=== PATIENT | female | born 1940 | race Caucasian/White ===

== ENCOUNTER 2024-08-08 16:17 | Inpatient (IN) ==
--- NOTE | 2024-08-08 16:30 | Emergency Department Note ---
Impression & Plan Stroke-like symptoms, VAL (internuclear ophthalmoplegia) ED Provider Note Provider: Carlitos Mendez MD DATE OF SERVICE: 08/08/2024 CHIEF COMPLAINT: Neurosymptoms HISTORY OF PRESENT ILLNESS: Patient is a 84-year-old female history of TIAs by her report presenting with EMS from home. Patient evidently is normal around 10 PM last night. EMS states son went to check on this afternoon and the patient had gotten ready going to [employer] and found her seated having visual issues and maybe some right-sided facial droop and weakness. EMS was activated. Patient is on aspirin. No falls or trauma reported. Patient denies any pain. Patient reports that she has some visual issue with blurriness when she uses both eyes but using just 1 eye at a time she does not have blurry vision. Denies numbness or tingling of the face arms or legs. Again denies any shortness of breath or cough or cold symptoms. No nausea or vomiting reported. PAST MEDICAL HISTORY: As noted above MEDICATIONS: Reviewed home medications on aspirin SOCIAL HISTORY: Lives at home, states non-smoker PHYSICAL EXAM: GENERAL: alert and oriented in no acute distress on stretcher Head: normocephalic and atraumatic EYES: No injection, discharge or icterus. PERRL, limited adduction of the left eye otherwise EOMs intact. No obvious nystagmus on exam. NECK: Trachea midline. Supple. ENT: Mucous membranes pink and moist. Pharynx without erythema or exudate. LUNGS: Airway patent. No retractions. Breath sounds clear with good air entry bilaterally. HEART: Regular rate and rhythm. No chest wall tenderness ABDOMEN: Soft and non-tender, without guarding or rebound. SKIN: Acyanotic, warm, dry, without rashes EXTREMITIES: Without swelling, tenderness or deformity NEUROLOGICAL: No aphasia. Perhaps a very slight mild right facial droop but no severe dysarthria or slurred speech appreciable. Patient with inability to adductor the left eye. Normal strength and tone in the extremities. Sensation to gross touch normal. Slight deviation of tongue to the right EK beats per minute normal sinus rhythm. No PVC or PAC. Some T wave inversions but no acute ST segment elevation or depression with a QTc of 431. Some artifact particularly in precordial leads. CONTINUOUS CARDIAC MONITORING: was ordered and showed a heart rate of 60s to 70s bpm in normal sinus rhythm Patient's laboratory studies and imaging reviewed. Differential includes Infection, dehydration, metabolic abnormality, hypo/hyperglycemia, electrolyte disturbance, anemia, hypoxia, cardiac sources, intracerebral event, toxicologic, neurologic, as well as other pathologies. IMPRESSION/MEDICAL DECISION MAKING: Patient history of TIA. Denies heart or kidney issues. Last known well 10 PM last night 18 hours ago so outside the window for thrombolytics. Did not seem to have hemiplegia and denies numbness in the extremities or face.. Seems to have some some component of VAL on exam unable to adductor the left eye. No seizure activity reported or trauma. Denies any pain. Sent for CT scans of the head and CT angiograms of the head and neck. Blood work obtained. Question stroke but again outside the window for thrombolytics. Unlikely to be LVO given the constellation of symptoms she is presenting with but again angiograms obtained. On aspirin. No infectious symptoms otherwise related. Blood work here without anemia or leukocytosis. Normal platelet count. No severe electrolyte abnormalities with creatinine 1.2. Unsure baseline is no records available in our system or the [facility] system. Chest x-ray per radiology report without acute pneumonia, pneumothorax, or effusion noted. Normal LFTs. Troponin returns normal. CT reports without acute intracranial abnormality or bleed or vascular acute abnormality notable. Do question possible CVA given the VAL present and will bring in for further evaluation. Family and patient agreeable. Hospitalist team contacted. DIAGNOSIS: Strokelike symptoms, visual changes DISPOSITION: Hospitalist will evaluate Patient was agreeable with this plan. Past Med/Surg History Problem List (Updated 08/08/24 @ 21:17 by Carlitos Mendez M.D.) VAL (internuclear ophthalmoplegia) (Acute) Stroke-like symptoms (Acute) Medical History (Updated 08/08/24 @ 21:17 by Carlitos Mendez M.D.) Irritable bowel syndrome GERD (gastroesophageal reflux disease) History of breast cancer 2013 Right - s/p lumpectomy and raditation Hypertension History of stroke No residual deficits Surgical History (Updated 08/08/24 @ 19:38 by Ruddy Garcia MD) History of lumpectomy of right breast Social History Smoking Status: Never smoker Hx Alcohol Use: No Hx Substance Use: No Preferred Language: Mexican Communication Ability: Effective Optical Designer Required: No Beliefs That Will Affect Care: None Current Living Situation: Family Current Living Situation Comment: lives with sonMark Feels Safe at Home: Yes Safety Concerns: Feels Safe At This Time Assistive Devices: None Allergies Allergies Allergy/AdvReac Type Severity Reaction Status Date / Time No Known Allergies Allergy Unverified 08/08/24 17:54 Home Meds Home Medications Medication Instructions Recorded Confirmed aspirin 81 mg tablet,delayed 81 mg PO QAM 08/08/24 08/08/24 release calcium 600 mg (as 1 tab PO DAILY 08/08/24 08/08/24 carbonate)-vitamin D3 10 mcg (400 unit) tablet (Calcium 600 + D(3)) cholecalciferol (vitamin D3) 125 125 mcg PO DAILY 08/08/24 08/08/24 mcg (5,000 unit) tablet (Vitamin D3) cimetidine 200 mg tablet 200 mg PO DAILY 08/08/24 08/08/24 hydrochlorothiazide 25 mg tablet 25 mg PO DAILY 08/08/24 08/08/24 potassium citrate 99 mg capsule 99 mg PO DAILY 08/08/24 08/08/24 propranolol 60 mg capsule,24 60 mg PO DAILY 08/08/24 08/08/24 hr,extended release vitamin A-vitamin C-vit E-min 1 tab PO DAILY 08/08/24 08/08/24 tablet Results & Data (ED) Vital Signs Vital Signs - 24 hr 08/08/24 16:18 08/08/24 16:39 08/08/24 17:30 Temperature 36.6 C Temperature Source Oral Pulse Rate 87 71 63 Pulse Rate from SpO2 Sensor 69 63 Respiratory Rate 23 18 21 Respiratory Effort / Characteristics Non-Labored Spontaneous Respiratory Depth Normal Blood Pressure 147/90 H 130/74 Blood Pressure Mean 109 92 Pulse Oximetry 93 97 97 Oxygen Delivery Method Room Air Room Air Room Air Sepsis Recent Fever Within 48 Hours No Sepsis New/Unexplained Change in Mental Status N/A Sepsis Action Taken by Nursing No Action Required 08/08/24 17:32 Temperature Temperature Source Pulse Rate 67 Pulse Rate from SpO2 Sensor Respiratory Rate Respiratory Effort / Characteristics Respiratory Depth Blood Pressure Blood Pressure Mean Pulse Oximetry Oxygen Delivery Method Sepsis Recent Fever Within 48 Hours Sepsis New/Unexplained Change in Mental Status Sepsis Action Taken by Nursing Laboratory Data 08/08/24 16:30 08/08/24 16:30 Lab Results 08/08/24 08/08/24 Range/Units 16:30 16:32 WBC 6.75 (4.8-10.8) K/ul RBC 5.09 (4.20-5.40) M/uL Hgb 14.8 (12.0-16.0) g/dl POC Hgb 14.3 (12.0-16.0) g/dl Hct 43.9 (37.0-47.0) % POC Hct 42 (37-47) % MCV 86.2 (80.0-100.0) fL MCH 29.1 (25.0-34.0) pg MCHC 33.7 (32.0-36.0) g/dL RDW Std Deviation 38.7 (36.4-46.3) fL RDW Coeff of Mayda 12.3 (11.5-14.5) % Plt Count 190 (130-400) K/uL MPV 11.9 (9.4-12.4) fL Immature Gran % (Auto) 0.1 % Neut % (Auto) 63.1 % Lymph % (Auto) 26.2 % [place] % (Auto) 7.4 % Eos % (Auto) 2.2 % Baso % (Auto) 1.0 % Neut # (Auto) 4.25 (1.40-6.50) K/uL Lymph # (Auto) 1.77 (1.20-3.40) K/uL [place] # (Auto) 0.50 (0.11-0.59) K/uL Eos # (Auto) 0.15 (0.00-0.50) K/uL Baso # (Auto) 0.07 (0.00-0.20) K/uL Immature Gran # (Auto) 0.01 (0.01-0.20) K/uL PT 10.8 (9.0-12.0) Seconds INR 1.0 (0.9-1.1) APTT 27 (21-31) Seconds PTT Ratio 1.0 POC Sodium 140 (135-144) mmol/L Sodium 139 (136-145) mmol/L POC Potassium 4.0 (3.3-5.0) mmol/L Potassium 4.0 (3.5-5.1) mmol/L POC Chloride 103 (101-112) mmol/L Chloride 104 (98-107) mmol/L Carbon Dioxide 28 (21-32) mmol/L POC Total CO2 25 (24-31) mmol/L Anion Gap 7 (3-11) POC Anion Gap 17.0 (16-25) mmol/L POC BUN 26 H (7-18) mg/dl BUN 27 H (6-23) mg/dl Creatinine 1.04 (0.6-1.2) mg/dl POC Creatinine 1.2 (0.6-1.3) mg/dl Est Cr Clr Drug Dosing 35.2 ml/min eGFR 52.34 BUN/Creatinine Ratio 26.0 H (10-20) Glucose 94 (70-99(Fasting)) mg/dl POC Glucose (other) 98 (70-99) mg/dl Calcium 9.9 (8.6-10.3) mg/dl POC Ioniz Calcium Ernie 1.22 (1.12-1.32) mmol/l Magnesium 2.3 (1.7-2.4) mg/dl Total Bilirubin 1.2 H (0.2-1.0) mg/dl AST 18 (13-39) U/L ALT 11 (7-52) U/L Alkaline Phosphatase 54 (34-104) U/L Troponin I High Sens < 2.3 (0-14) pg/ml Total Protein 7.2 (6.0-8.3) gm/dl Albumin 4.1 (3.4-5.0) gm/dl Globulin 3.1 (2.5-4.0) gm/dl Albumin/Globulin Ratio 1.3 (0.9-2) Administered Medications Discontinued Medications Ioversol (Optiray 320 125ml) 118 ml IV ONCE ONE Stop: 08/08/24 17:21 Last Admin: 08/08/24 17:22 Dose: 118 ml Documented By: EDK Imaging Data Radiologist's Impression: Chest X-Ray 08/08/24 16:23 EXAM: Radiograph of the Chest 1 View INDICATION: Stroke alert. TECHNIQUE: Frontal view of the chest. COMPARISON: No relevant prior studies available. FINDINGS: Lungs and pleural spaces: No consolidation or pulmonary edema. No pleural effusion or pneumothorax. Heart: Shape and configuration within normal limits allowing for technique. Mediastinum: Normal contour. Bones/joints: Degenerative changes noted throughout the spine. No acute osseous abnormality seen. Soft tissues: No abnormality noted. No radiopaque foreign body noted. Vasculature: The aorta is mildly ectatic in the arch calcified. Upper abdomen: No abnormality noted. IMPRESSION: No acute cardiopulmonary disease. ACT 112: Negative or not required by law. Electronically signed by Holly Colin 08-08-2024 4:[address] 08/08/24 16:23 EXAM: CT Head Without Intravenous Contrast INDICATION: Visual changes and slurred speech. TECHNIQUE: Axial computed tomography images of the head/brain without intravenous contrast. Sagittal and/or coronal reformats are provided. Sagittal and coronal reformatted images were created and reviewed. This CT exam was performed using one or more of the following dose reduction techniques: automated exposure control, adjustment of the mA and/or kV according to patient size, and/or use of iterative reconstruction technique. COMPARISON: No relevant prior studies available. FINDINGS: Limitations: None. Brain and extra-axial spaces: There is age appropriate cortical atrophy and chronic ischemic periventricular white matter hypodensity. No acute infarct, hemorrhage or mass noted. Left frontal encephalomalacia consistent with old small infarct. Bones/joints: No acute changes. Soft tissues: No significant abnormality noted. Vasculature: No acute abnormality noted. Sinuses: There is mild left sphenoid sinus mucosal thickening or fluid. Mastoid air cells: No mastoid effusion. Orbits: No significant abnormality noted. IMPRESSION: Cerebral atrophy and old left frontal infarct. No acute changes. ACT 112: Negative or not required by law. Electronically signed by Holly Colin 08-08-2024 5:49 PM Head CTA 08/08/24 16:23 EXAM: CT Angiography Head and Neck With Intravenous Contrast INDICATION: Visual changes and slurred speech. TECHNIQUE: [place]/head and neck CT angiography protocol performed with intravenous contrast. Sagittal and coronal reformatted images were created and reviewed. This CT exam was performed using one or more of the following dose reduction techniques: automated exposure control, adjustment of the mA and/or kV according to patient size, and/or use of iterative reconstruction technique. MIP reconstructed images were created and reviewed. CONTRAST: 118ml of Optiray 320 was administered intravenously. COMPARISON: None. FINDINGS: HEAD: Right anterior cerebral artery: No abnormality noted. No occlusion or significant stenosis. Anterior communicating artery is present. No aneurysm. Right middle cerebral artery: No abnormality noted. No occlusion or significant stenosis. No aneurysm. Right posterior cerebral artery: No abnormality noted. No occlusion or significant stenosis. No aneurysm. Right intracranial internal carotid artery: No abnormality noted. No significant stenosis. No dissection or occlusion. Right intracranial vertebral artery: No abnormality noted. No significant stenosis. No dissection or occlusion. Left anterior cerebral artery: No abnormality noted. No occlusion or significant stenosis. No aneurysm. Left middle cerebral artery: No abnormality noted. No occlusion or significant stenosis. No aneurysm. Left posterior cerebral artery: No abnormality noted. No occlusion or significant stenosis. No aneurysm. Left intracranial internal carotid artery: No abnormality noted. No significant stenosis. No dissection or occlusion. Left intracranial vertebral artery: No abnormality noted. No significant stenosis. No dissection or occlusion. Basilar artery: No abnormality noted. No occlusion or significant stenosis. No aneurysm. Other vasculature: No vascular malformation. Sinuses: There is mild chronic left sphenoid and bilateral maxillary sinus thickening. NECK: Right common carotid artery: No abnormality noted. No significant stenosis. No dissection or occlusion. Right extracranial internal carotid artery: Small focal proximal calcific plaque. No significant stenosis. No dissection or occlusion. Right external carotid artery: No abnormality noted. No occlusion. Right extracranial vertebral artery: No abnormality noted. No significant stenosis. No dissection or occlusion. Left common carotid artery: No abnormality noted. No significant stenosis. No dissection or occlusion. Left extracranial internal carotid artery: No abnormality noted. No significant stenosis. No dissection or occlusion. Left external carotid artery: No abnormality noted. No occlusion. Left extracranial vertebral artery: No abnormality noted. No significant stenosis. No dissection or occlusion. Lung apices: No significant abnormality noted. HEAD and NECK: Bones/joints: No significant abnormality. Soft tissues: No abnormality noted. CAROTID STENOSIS REFERENCE USING NASCET CRITERIA: % ICA stenosis = (1 - narrowest ICA diameter/diameter of distal cervical ICA) x 100. Mild - <50% stenosis. Moderate - 50-69% stenosis. Severe - 70-94% stenosis. Near occlusion - 95-99% stenosis. Occluded - 100% stenosis. IMPRESSION: 1. No large vessel occlusion, aneurysm or dissection in the neck or brain. 2. No carotid stenosis. ACT 112: Negative or not required by law. Electronically signed by Holly Colin 08-08-2024 5:52 PM Neck CTA 08/08/24 16:23 EXAM: CT Angiography Head and Neck With Intravenous Contrast INDICATION: Visual changes and slurred speech. TECHNIQUE: [place]/head and neck CT angiography protocol performed with intravenous contrast. Sagittal and coronal reformatted images were created and reviewed. This CT exam was performed using one or more of the following dose reduction techniques: automated exposure control, adjustment of the mA and/or kV according to patient size, and/or use of iterative reconstruction technique. MIP reconstructed images were created and reviewed. CONTRAST: 118ml of Optiray 320 was administered intravenously. COMPARISON: None. FINDINGS: HEAD: Right anterior cerebral artery: No abnormality noted. No occlusion or significant stenosis. Anterior communicating artery is present. No aneurysm. Right middle cerebral artery: No abnormality noted. No occlusion or significant stenosis. No aneurysm. Right posterior cerebral artery: No abnormality noted. No occlusion or significant stenosis. No aneurysm. Right intracranial internal carotid artery: No abnormality noted. No significant stenosis. No dissection or occlusion. Right intracranial vertebral artery: No abnormality noted. No significant stenosis. No dissection or occlusion. Left anterior cerebral artery: No abnormality noted. No occlusion or significant stenosis. No aneurysm. Left middle cerebral artery: No abnormality noted. No occlusion or significant stenosis. No aneurysm. Left posterior cerebral artery: No abnormality noted. No occlusion or significant stenosis. No aneurysm. Left intracranial internal carotid artery: No abnormality noted. No significant stenosis. No dissection or occlusion. Left intracranial vertebral artery: No abnormality noted. No significant stenosis. No dissection or occlusion. Basilar artery: No abnormality noted. No occlusion or significant stenosis. No aneurysm. Other vasculature: No vascular malformation. Sinuses: There is mild chronic left sphenoid and bilateral maxillary sinus thickening. NECK: Right common carotid artery: No abnormality noted. No significant stenosis. No dissection or occlusion. Right extracranial internal carotid artery: Small focal proximal calcific plaque. No significant stenosis. No dissection or occlusion. Right external carotid artery: No abnormality noted. No occlusion. Right extracranial vertebral artery: No abnormality noted. No significant stenosis. No dissection or occlusion. Left common carotid artery: No abnormality noted. No significant stenosis. No dissection or occlusion. Left extracranial internal carotid artery: No abnormality noted. No significant stenosis. No dissection or occlusion. Left external carotid artery: No abnormality noted. No occlusion. Left extracranial vertebral artery: No abnormality noted. No significant stenosis. No dissection or occlusion. Lung apices: No significant abnormality noted. HEAD and NECK: Bones/joints: No significant abnormality. Soft tissues: No abnormality noted. CAROTID STENOSIS REFERENCE USING NASCET CRITERIA: % ICA stenosis = (1 - narrowest ICA diameter/diameter of distal cervical ICA) x 100. Mild - <50% stenosis. Moderate - 50-69% stenosis. Severe - 70-94% stenosis. Near occlusion - 95-99% stenosis. Occluded - 100% stenosis. IMPRESSION: 1. No large vessel occlusion, aneurysm or dissection in the neck or brain. 2. No carotid stenosis. ACT 112: Negative or not required by law. Electronically signed by Holly Colin 08-08-2024 5:53 PM Discharge Plan Visit Data Chief Complaint: Stroke/CVA Symptoms Stated Complaint: STROKE ALERT ED Provider: Carlitos Mendez Discharge Problem: Stroke-like symptoms, VAL (internuclear ophthalmoplegia) Patient Disposition: Admitted As Inpatient Discharge Instructions Interventions: ED Discharge Assessment Last Done: 08/08/24 20:03 Discharge Problem: VAL (internuclear ophthalmoplegia) Qualifiers: Laterality: unspecified laterality Qualified Code(s): H51.20 - Internuclear ophthalmoplegia, unspecified eye
[2024-08-08 16:44] LABS: iSTAT Creatinine 1.2 mg/dl (0.6-1.3); iSTAT Hemoglobin 14.3 g/dl (12.0-16.0); iSTAT Ionized Calcium 1.22 mmol/l (1.12-1.32)
[2024-08-08 16:47] LABS: Basophils # (auto) 0.07 K/uL (0.00-0.20); Eosinophils # (auto) 0.15 K/uL (0.00-0.50); Eosinophils % (auto) 2.2 %; Hematocrit (blood only) 43.9 % (37.0-47.0); Hemoglobin 14.8 g/dl (12.0-16.0); Immature Granulocytes # (auto) 0.01 K/uL (0.01-0.20); Immature Granulocytes % (auto) 0.1 %; Lymphocytes # (auto) 1.77 K/uL (1.20-3.40); Lymphocytes % (auto) 26.2 %; Mean Corpuscular Hemoglobin 29.1 pg (25.0-34.0); Mean Corpuscular Hgb Conc 33.7 g/dL (32.0-36.0); Mean Corpuscular Volume 86.2 fL (80.0-100.0); Mean Platelet Volume 11.9 fL (9.4-12.4); Monocytes % (auto) 7.4 %; Neutrophils # (auto) 4.25 K/uL (1.40-6.50); Neutrophils % (auto) 63.1 %; Platelet Count 190 K/uL (130-400); RDW Coefficient of Variation 12.3 % (11.5-14.5); RDW Standard Deviation 38.7 fL (36.4-46.3); Red Blood Count 5.09 M/uL (4.20-5.40); White Blood Count 6.75 K/ul (4.8-10.8)
--- NOTE | 2024-08-08 16:49 | XRay Report ---
EXAM: Radiograph of the Chest 1 View INDICATION: Stroke alert. TECHNIQUE: Frontal view of the chest. COMPARISON: No relevant prior studies available. FINDINGS: Lungs and pleural spaces: No consolidation or pulmonary edema. No pleural effusion or pneumothorax. Heart: Shape and configuration within normal limits allowing for technique. Mediastinum: Normal contour. Bones/joints: Degenerative changes noted throughout the spine. No acute osseous abnormality seen. Soft tissues: No abnormality noted. No radiopaque foreign body noted. Vasculature: The aorta is mildly ectatic in the arch calcified. Upper abdomen: No abnormality noted. IMPRESSION: No acute cardiopulmonary disease. ACT 112: Negative or not required by law. Electronically signed by Holly Colin 08-08-2024 4:46 PM
[2024-08-08 17:04] LABS: Alanine Aminotransferase 11 U/L (7-52); Albumin Globulin Ratio 1.3 (0.9-2); Albumin Level 4.1 gm/dl (3.4-5.0); Alkaline Phosphatase 54 U/L (34-104); Anion Gap 7 (3-11); Aspartate Aminotransferase 18 U/L (13-39); Bilirubin,Total 1.2 mg/dl (0.2-1.0); Blood Urea Nitrogen 27 mg/dl (6-23); Calcium 9.9 mg/dl (8.6-10.3); Carbon Dioxide 28 mmol/L (21-32); Chloride 104 mmol/L (98-107); Creatinine Clr Calc Pharmacy 35.2 ml/min; Globulin 3.1 gm/dl (2.5-4.0); Glucose 94 mg/dl (70-99(Fasting)); Magnesium 2.3 mg/dl (1.7-2.4); Sodium 139 mmol/L (136-145); Total Protein 7.2 gm/dl (6.0-8.3)
[2024-08-08 17:09] LABS: Troponin I High Sensitivity < 2.3 pg/ml (0-14)
[2024-08-08 17:15] LABS: Partial Thromboplastin Time 27 Seconds (21-31); Prothrombin Time 10.8 Seconds (9.0-12.0)
[2024-08-08] MEDS: OPTIRAY 320 125ml IV ONE (17:22)
--- NOTE | 2024-08-08 17:52 | CT Scan Report ---
EXAM: CT Head Without Intravenous Contrast INDICATION: Visual changes and slurred speech. TECHNIQUE: Axial computed tomography images of the head/brain without intravenous contrast. Sagittal and/or coronal reformats are provided. Sagittal and coronal reformatted images were created and reviewed. This CT exam was performed using one or more of the following dose reduction techniques: automated exposure control, adjustment of the mA and/or kV according to patient size, and/or use of iterative reconstruction technique. COMPARISON: No relevant prior studies available. FINDINGS: Limitations: None. Brain and extra-axial spaces: There is age appropriate cortical atrophy and chronic ischemic periventricular white matter hypodensity. No acute infarct, hemorrhage or mass noted. Left frontal encephalomalacia consistent with old small infarct. Bones/joints: No acute changes. Soft tissues: No significant abnormality noted. Vasculature: No acute abnormality noted. Sinuses: There is mild left sphenoid sinus mucosal thickening or fluid. Mastoid air cells: No mastoid effusion. Orbits: No significant abnormality noted. IMPRESSION: Cerebral atrophy and old left frontal infarct. No acute changes. ACT 112: Negative or not required by law. Electronically signed by Holly Colin 08-08-2024 5:49 PM
--- NOTE | 2024-08-08 17:53 | CT Scan Report ---
EXAM: CT Angiography Head and Neck With Intravenous Contrast INDICATION: Visual changes and slurred speech. TECHNIQUE: [place] [facility] [place]/head and neck CT angiography protocol performed with intravenous contrast. Sagittal and coronal reformatted images were created and reviewed. This CT exam was performed using one or more of the following dose reduction techniques: automated exposure control, adjustment of the mA and/or kV according to patient size, and/or use of iterative reconstruction technique. MIP reconstructed images were created and reviewed. CONTRAST: 118ml of Optiray 320 was administered intravenously. COMPARISON: None. FINDINGS: HEAD: Right anterior cerebral artery: No abnormality noted. No occlusion or significant stenosis. Anterior communicating artery is present. No aneurysm. Right middle cerebral artery: No abnormality noted. No occlusion or significant stenosis. No aneurysm. Right posterior cerebral artery: No abnormality noted. No occlusion or significant stenosis. No aneurysm. Right intracranial internal carotid artery: No abnormality noted. No significant stenosis. No dissection or occlusion. Right intracranial vertebral artery: No abnormality noted. No significant stenosis. No dissection or occlusion. Left anterior cerebral artery: No abnormality noted. No occlusion or significant stenosis. No aneurysm. Left middle cerebral artery: No abnormality noted. No occlusion or significant stenosis. No aneurysm. Left posterior cerebral artery: No abnormality noted. No occlusion or significant stenosis. No aneurysm. Left intracranial internal carotid artery: No abnormality noted. No significant stenosis. No dissection or occlusion. Left intracranial vertebral artery: No abnormality noted. No significant stenosis. No dissection or occlusion. Basilar artery: No abnormality noted. No occlusion or significant stenosis. No aneurysm. Other vasculature: No vascular malformation. Sinuses: There is mild chronic left sphenoid and bilateral maxillary sinus thickening. NECK: Right common carotid artery: No abnormality noted. No significant stenosis. No dissection or occlusion. Right extracranial internal carotid artery: Small focal proximal calcific plaque. No significant stenosis. No dissection or occlusion. Right external carotid artery: No abnormality noted. No occlusion. Right extracranial vertebral artery: No abnormality noted. No significant stenosis. No dissection or occlusion. Left common carotid artery: No abnormality noted. No significant stenosis. No dissection or occlusion. Left extracranial internal carotid artery: No abnormality noted. No significant stenosis. No dissection or occlusion. Left external carotid artery: No abnormality noted. No occlusion. Left extracranial vertebral artery: No abnormality noted. No significant stenosis. No dissection or occlusion. Lung apices: No significant abnormality noted. HEAD and NECK: Bones/joints: No significant abnormality. Soft tissues: No abnormality noted. CAROTID STENOSIS REFERENCE USING NASCET CRITERIA: % ICA stenosis = (1 - narrowest ICA diameter/diameter of distal cervical ICA) x 100. Mild - <50% stenosis. Moderate - 50-69% stenosis. Severe - 70-94% stenosis. Near occlusion - 95-99% stenosis. Occluded - 100% stenosis. IMPRESSION: 1. No large vessel occlusion, aneurysm or dissection in the neck or brain. 2. No carotid stenosis. ACT 112: Negative or not required by law. Electronically signed by Holly Colin 08-08-2024 5:52 PM
--- NOTE | 2024-08-08 18:52 | History & Physical Report ---
Date of Service August 08, 2024 Assessment & Plan (1) Stroke-like symptoms: Plan: Unable to medial abduct left eye causing diplopia worse on right lateral vision, facial droop resolved, co-ordination poor b/l but worse on right side Suspected acute CVA pending MRI brain. Last known well 10pm day prior to admission TTE with bubble study Monitor on telemetry for atrial fibrillation Stroke order set Failed dysphagia screen due to facial droop - aspirin 300mg WI, NPO IV fluids pending SLT consult Add clopidogrel and statin pending SLT consult tomorrow PT/OT Consult neurology for ongoing recommendations (2) Hypertension: Plan: Allow permissive hypertension, holding PO anti-hypertensives (3) GERD (gastroesophageal reflux disease): Plan: Restart cimetidine when able to take PO intake Plan VTE Prophylaxis - Lovenox 40mg SQ daily Diet - NPO (failed dysphagia screen) Disposition - admit to PCU Admission and Anticipated Discharge Date Admission Date: August 08, 2024 History of Present Illness Chief Complaint: Stroke like symptoms Primary Care Provider: NO PCP Holly Max is an 84 year old female who presents to the ER with slurred speech, diplopia, right facial droop, right tongue deviation. Last known well 10pm yesterday. She reports waking up with symptoms this morning around 7am. She felt off but couldn't figure what the problem was but with hindsight she was having diplopia. She did not go to [place] but watched it on TV. This alerted her son that something was wrong and she was still in bed when he went around to see her and was unable to get out of bed due to being unbalanced. He noticed she was rubbing her eye as she was seeing double, right facial droop, she couldn't walk straight and her speech was more slurred. Therefore called EMS and brought her to the ER. She reports feeling her normal self yesterday. Per family at beside her facial droop has improved since coming to the ER. Allergies Allergy/AdvReac Type Severity Reaction Status Date / Time No Known Allergies Allergy Unverified 08/08/24 17:54 Home Medications Medication Instructions Recorded Confirmed Type aspirin 81 mg tablet,delayed 81 mg PO QAM 08/08/24 08/08/24 History release calcium 600 mg (as 1 tab PO DAILY 08/08/24 08/08/24 History carbonate)-vitamin D3 10 mcg (400 unit) tablet (Calcium 600 + D(3)) cholecalciferol (vitamin D3) 125 125 mcg PO DAILY 08/08/24 08/08/24 History mcg (5,000 unit) tablet (Vitamin D3) cimetidine 200 mg tablet 200 mg PO DAILY 08/08/24 08/08/24 History hydrochlorothiazide 25 mg tablet 25 mg PO DAILY 08/08/24 08/08/24 History potassium citrate 99 mg capsule 99 mg PO DAILY 08/08/24 08/08/24 History propranolol 60 mg capsule,24 60 mg PO DAILY 08/08/24 08/08/24 History hr,extended release vitamin A-vitamin C-vit E-min 1 tab PO DAILY 08/08/24 08/08/24 History tablet Past Med/Surg History Problem List (Updated 08/08/24 @ 21:17 by Carlitos Mendez M.D.) VAL (internuclear ophthalmoplegia) (Acute) Stroke-like symptoms (Acute) Medical History (Updated 08/08/24 @ 21:17 by Carlitos Mendez M.D.) Irritable bowel syndrome GERD (gastroesophageal reflux disease) History of breast cancer 2013 Right - s/p lumpectomy and raditation Hypertension History of stroke No residual deficits Surgical History (Updated 08/08/24 @ 19:38 by Ruddy Garcia MD) History of lumpectomy of right breast Social History Smoking Status: Never smoker Hx Alcohol Use: No Hx Substance Use: No Preferred Language: Wolof Communication Ability: Effective Etl Manager Required: No Beliefs That Will Affect Care: None Current Living Situation: Family Current Living Situation Comment: lives with Mark mchugh Feels Safe at Home: Yes Safety Concerns: Feels Safe At This Time Assistive Devices: None Review of Systems Review of Systems: All systems reviewed & are unremarkable except as noted in HPI & below Physical Exam Constitutional: WD/WN, vitals as above ENMT: external ear and nose normal, oropharynx normal Respiratory: normal respiratory effort, lungs clear to auscultation Cardiovascular: RRR, no murmur, no edema Gastrointestinal (Abdomen): normal bowel sounds, soft, nontender, no hepatosplenomegaly Musculoskeletal: no cyanosis or clubbing, extremities motor strength 5/5 Skin: no rashes, warm and dry Neurologic: moves all extremities and awake; no focal motor deficits and not confused Speech / Cognition: + abnormal speech (mild slurring, no significant dysarthria); no expressive aphasia and no receptive aphasia Motor/Sensory: no tremor and no pronator drift Cranial Nerves: PERRL, normal facial strength, tongue midline, able to rotate head bilaterally, able to elevate shoulders bilaterally, no nystagmus and symmetric palate elevation; + EOM not intact (Left eye medial movement abn, increased diplopia on right lateral vision) Gait: + staggering gait (leans to right side) Coordination: + abnormal [id number] test (better on right than left side); normal [id number] test Psychiatric: A+Ox3, euthymic affect Results & Data Results & Data Vital Signs (Past 12 Hours) Vital Signs Temp Pulse Resp BP Pulse Ox O2 Del Method 08/08/24 17:32 67 08/08/24 17:30 63 21 130/74 97 Room Air 08/08/24 16:39 71 18 97 Room Air 08/08/24 16:18 36.6 C 87 23 147/90 H 93 Room Air Laboratory Results Abnormal lab results 08/08/24 08/08/24 Range/Units 16:30 16:32 POC BUN 26 H (7-18) mg/dl BUN 27 H (6-23) mg/dl BUN/Creatinine Ratio 26.0 H (10-20) Total Bilirubin 1.2 H (0.2-1.0) mg/dl Diagnostic Findings EXAM: CT Head Without Intravenous Contrast INDICATION: Visual changes and slurred speech. TECHNIQUE: Axial computed tomography images of the head/brain without intravenous contrast. Sagittal and/or coronal reformats are provided. Sagittal and coronal reformatted images were created and reviewed. This CT exam was performed using one or more of the following dose reduction techniques: automated exposure control, adjustment of the mA and/or kV according to patient size, and/or use of iterative reconstruction technique. COMPARISON: No relevant prior studies available. FINDINGS: Limitations: None. Brain and extra-axial spaces: There is age appropriate cortical atrophy and chronic ischemic periventricular white matter hypodensity. No acute infarct, hemorrhage or mass noted. Left frontal encephalomalacia consistent with old small infarct. Bones/joints: No acute changes. Soft tissues: No significant abnormality noted. Vasculature: No acute abnormality noted. Sinuses: There is mild left sphenoid sinus mucosal thickening or fluid. Mastoid air cells: No mastoid effusion. Orbits: No significant abnormality noted. IMPRESSION: Cerebral atrophy and old left frontal infarct. No acute changes. EXAM: CT Angiography Head and Neck With Intravenous Contrast INDICATION: Visual changes and slurred speech. TECHNIQUE: [place] [facility] [place]/head and neck CT angiography protocol performed with intravenous contrast. Sagittal and coronal reformatted images were created and reviewed. This CT exam was performed using one or more of the following dose reduction techniques: automated exposure control, adjustment of the mA and/or kV according to patient size, and/or use of iterative reconstruction technique. MIP reconstructed images were created and reviewed. CONTRAST: 118ml of Optiray 320 was administered intravenously. COMPARISON: None. FINDINGS: HEAD: Right anterior cerebral artery: No abnormality noted. No occlusion or significant stenosis. Anterior communicating artery is present. No aneurysm. Right middle cerebral artery: No abnormality noted. No occlusion or significant stenosis. No aneurysm. Right posterior cerebral artery: No abnormality noted. No occlusion or significant stenosis. No aneurysm. Right intracranial internal carotid artery: No abnormality noted. No significant stenosis. No dissection or occlusion. Right intracranial vertebral artery: No abnormality noted. No significant stenosis. No dissection or occlusion. Left anterior cerebral artery: No abnormality noted. No occlusion or significant stenosis. No aneurysm. Left middle cerebral artery: No abnormality noted. No occlusion or significant stenosis. No aneurysm. Left posterior cerebral artery: No abnormality noted. No occlusion or significant stenosis. No aneurysm. Left intracranial internal carotid artery: No abnormality noted. No significant stenosis. No dissection or occlusion. Left intracranial vertebral artery: No abnormality noted. No significant stenosis. No dissection or occlusion. Basilar artery: No abnormality noted. No occlusion or significant stenosis. No aneurysm. Other vasculature: No vascular malformation. Sinuses: There is mild chronic left sphenoid and bilateral maxillary sinus thickening. NECK: Right common carotid artery: No abnormality noted. No significant stenosis. No dissection or occlusion. Right extracranial internal carotid artery: Small focal proximal calcific plaque. No significant stenosis. No dissection or occlusion. Right external carotid artery: No abnormality noted. No occlusion. Right extracranial vertebral artery: No abnormality noted. No significant stenosis. No dissection or occlusion. Left common carotid artery: No abnormality noted. No significant stenosis. No dissection or occlusion. Left extracranial internal carotid artery: No abnormality noted. No significant stenosis. No dissection or occlusion. Left external carotid artery: No abnormality noted. No occlusion. Left extracranial vertebral artery: No abnormality noted. No significant stenosis. No dissection or occlusion. Lung apices: No significant abnormality noted. HEAD and NECK: Bones/joints: No significant abnormality. Soft tissues: No abnormality noted. CAROTID STENOSIS REFERENCE USING NASCET CRITERIA: % ICA stenosis = (1 - narrowest ICA diameter/diameter of distal cervical ICA) x 100. Mild - <50% stenosis. Moderate - 50-69% stenosis. Severe - 70-94% stenosis. Near occlusion - 95-99% stenosis. Occluded - 100% stenosis. IMPRESSION: 1. No large vessel occlusion, aneurysm or dissection in the neck or brain. 2. No carotid stenosis. Medications Administered ER Medications Given: None ECG Rate (beats per minute): 63 Rhythm: normal sinus Findings: no acute ischemic change Comparison ECG Date: no prior available Code Status & VTE Plan Code Status DNR/DNI per patient wishes VTE Prophylaxis Plan VTE Prophylaxis will be ordered: Yes PG Care Time/CCT Total # of Minutes Spent Total Time Spent with Patient: Total time spent is greater than 50% in coordination of care (as documented) at patient's floor/unit and/or counseling patient: Coding Level of Care Code 09126 INT INP/OBS CARE 375MIN Diagnoses Stroke-like symptoms R29.90 Primary hypertension I10 Hypertension type: primary hypertension Gastroesophageal reflux disease without esophagitis K21.9 Esophagitis presence: without esophagitis (2) Hypertension Hypertension type: primary hypertension Qualified Code(s): I10 - Essential (primary) hypertension (3) GERD (gastroesophageal reflux disease) Esophagitis presence: without esophagitis Qualified Code(s): K21.9 - Gastro- esophageal reflux disease without esophagitis
[2024-08-08] MEDS ORDERED: PHARMACIST DISCHARGE MED REC CONSULT PRN (20:39)
[2024-08-08] MEDS: LACTATED RINGER'S 1,000 ML IV SCH (21:20)
[2024-08-08] MEDS: ASPIRIN 300 MG SUPP PR STA (21:20)
[2024-08-08] MEDS: ENOXAPARIN INJ 40 MG/0.4 ML SYR SQ SCH (21:34)
--- NOTE | 2024-08-09 01:37 | Magnetic Resonance Report ---
Exam(s): MRI HEAD Without Contrast EXAM: MR Head Without Intravenous Contrast CLINICAL HISTORY: Reason for exam: Slurred speech, diplopia, right facial droop. TECHNIQUE: Magnetic resonance images of the head/brain without intravenous contrast in multiple planes. COMPARISON: Prior head CT from August 08, 2024. FINDINGS: Brain: There are 2 small acute ischemic injuries within the right cerebellum without evidence of hemorrhagic transformation. Remote ischemic injuries of the cerebellum. There is remote ischemic injury in the left frontal lobe with encephalomalacia and gliosis. Moderate nonspecific white matter changes. No mass. No hemorrhage. The flow voids of the base the brain are intact. Ventricles: Moderate ventriculomegaly. Bones/joints: Unremarkable. No acute fracture. Sinuses: Chronic left sphenoid sinusitis with air-fluid level. No acute sinusitis. Mastoid air cells: Unremarkable as visualized. No mastoid effusion. Orbits: Bilateral lens replacements. IMPRESSION: There are 2 small acute ischemic injuries within the right cerebellum without evidence of hemorrhagic transformation. Communications: Verify Receipt Electronically signed by: Bia Mike MD 08/09/24 01:36 AM
[2024-08-09 05:17] LABS: Basophils # (auto) 0.07 K/uL (0.00-0.20); Basophils % (auto) 1.1 %; Eosinophils # (auto) 0.18 K/uL (0.00-0.50); Eosinophils % (auto) 2.8 %; Hematocrit (blood only) 39.4 % (37.0-47.0); Hemoglobin 13.5 g/dl (12.0-16.0); Immature Granulocytes # (auto) 0.01 K/uL (0.01-0.20); Immature Granulocytes % (auto) 0.2 %; Lymphocytes # (auto) 2.19 K/uL (1.20-3.40); Lymphocytes % (auto) 33.6 %; Mean Corpuscular Hgb Conc 34.3 g/dL (32.0-36.0); Mean Corpuscular Volume 84.7 fL (80.0-100.0); Mean Platelet Volume 12.9 fL (9.4-12.4); Monocytes # (auto) 0.59 K/uL (0.11-0.59); Monocytes % (auto) 9.1 %; Neutrophils # (auto) 3.47 K/uL (1.40-6.50); Neutrophils % (auto) 53.2 %; Platelet Count 172 K/uL (130-400); RDW Coefficient of Variation 12.5 % (11.5-14.5); RDW Standard Deviation 37.9 fL (36.4-46.3); Red Blood Count 4.65 M/uL (4.20-5.40); White Blood Count 6.51 K/ul (4.8-10.8)
[2024-08-09 05:29] LABS: BUN Creatinine Ratio 31.3 (10-20); Calcium 9.2 mg/dl (8.6-10.3); Chol HDL Ratio 4.5 (0-5); Creatinine Clr Calc Pharmacy 41.8 ml/min; Potassium 3.6 mmol/L (3.5-5.1)
[2024-08-09 08:37] LABS: Estimated Average Glucose 117 mg/dl; Hemoglobin A1C 5.7 % (4.5-5.6)
--- NOTE | 2024-08-09 09:09 | Electrocardiogram Report ---
Test Reason : Blood Pressure : */* mmHG Vent. Rate : 63 BPM Atrial Rate : 63 BPM P-R Int : 132 ms QRS Dur : 66 ms QT Int : 422 ms P-R-T Axes : 41 -13 117 degrees QTcB Int : 431 ms Normal sinus rhythm Abnormal ECG No previous ECGs available Confirmed by Dyan Cunha (Asael) on 08/09/2024 9:08:48 AM Referred By: REFERRED SELF Confirmed By: Dyan Cunha
--- NOTE | 2024-08-09 11:19 | Neurology Consultation ---
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 She has mild right hemiataxia. The internuclear ophthalmoplegia would typically localize to the mercy or midbrain (medial longitudinal fasciculus). However, her brain MRI does not reveal any evidence of acute ischemic infarct in this area. Nonetheless, small acute ischemic infarcts within the brainstem can certainly be missed with MRI. Patient also has a chronic infarct involving the cortex of the left frontal lobe which may explain her mild right facial droop. Patient's CT angiography of the head and neck are negative for significant abnormality. Her chronic and recent strokes are probably embolic. Would recommend echocardiogram with bubble study. Consider obtaining ambulatory cardiac Holter monitoring. Would recommend dual antiplatelet therapy, aspirin 81 mg/day and Plavix 75 mg/day for 3 weeks, followed by Plavix monotherapy. If there is evidence of atrial fibrillation or cardioembolic source, would consider anticoagulation with Eliquis. Patient's lipid panel looks very good, further, given her advanced age, would not recommend starting a statin. Patient's blood pressure is appropriate. Continue to monitor, may allow for permissive hypertension acutely. Consultations with PT/OT/speech therapy. For the time being, patient may patch her left eye for comfort. Should have some outpatient ophthalmology follow-up as well. Should not require additional outpatient neurology follow-up. History of Present Illness Reason for Consultation: Stroke Requesting Physician: Radha Attending Physician: Fermín Watts DO History of Present Illness The patient is an 84-year-old female who presented to the emergency department yesterday evening for further assessment of right facial weakness, slurred speech and double vision. She was noted to have adductor insufficiency of the left eye with rightward gaze and some coordination difficulty with the right side at the time of her admission. Her symptoms are persistent. She reports that her diplopia is worse with near gaze and looking to the right. History notable for stroke occurring a few years ago. She has been taking aspirin 81 mg/day. CT angiography of the head and neck are unremarkable, no large vessel occlusion, dissection, or aneurysm. The vertebrobasilar and carotid arterial circulations are normal. A brain MRI reveals 2 small acute ischemic infarcts within the right cerebellar hemisphere. I did independently review these images. There is a chronic infarct within the left frontal lobe as well with associated encephalomalacia. There is not appear to be any evidence of an acute ischemic infarct within the mercy or midbrain. The patient denies headache or myalgia. Allergies Allergy/AdvReac Type Severity Reaction Status Date / Time No Known Allergies Allergy Unverified 08/08/24 17:54 Home Medications Medication Instructions Recorded Confirmed Type aspirin 81 mg tablet,delayed 81 mg PO QAM 08/08/24 08/08/24 History release calcium 600 mg (as 1 tab PO DAILY 08/08/24 08/08/24 History carbonate)-vitamin D3 10 mcg (400 unit) tablet (Calcium 600 + D(3)) cholecalciferol (vitamin D3) 125 125 mcg PO DAILY 08/08/24 08/08/24 History mcg (5,000 unit) tablet (Vitamin D3) cimetidine 200 mg tablet 200 mg PO DAILY 08/08/24 08/08/24 History hydrochlorothiazide 25 mg tablet 25 mg PO DAILY 08/08/24 08/08/24 History potassium citrate 99 mg capsule 99 mg PO DAILY 08/08/24 08/08/24 History propranolol 60 mg capsule,24 60 mg PO DAILY 08/08/24 08/08/24 History hr,extended release vitamin A-vitamin C-vit E-min 1 tab PO DAILY 08/08/24 08/08/24 History tablet Patient History Medical History (Updated 08/09/24 @ 11:07 by Ney Wilkes MD) Irritable bowel syndrome GERD (gastroesophageal reflux disease) History of breast cancer 2013 Right - s/p lumpectomy and raditation Hypertension History of stroke No residual deficits Surgical History (Updated 08/08/24 @ 19:38 by Ruddy Garcia MD) History of lumpectomy of right breast Social History Smoking Status: Never smoker Hx Alcohol Use: No Hx Substance Use: No Preferred Language: Colombian Communication Ability: Effective Tin Roofer Required: No Beliefs That Will Affect Care: None Current Living Situation: Family Current Living Situation Comment: lives with sonMark Feels Safe at Home: Yes Safety Concerns: Feels Safe At This Time Assistive Devices: None Review of Systems Constitutional: no fever and no chills Eyes: as per Subjective / HPI and + diplopia; no eye pain Ear, Nose, Mouth, Throat: no hearing loss Respiratory: no cough and no dyspnea Cardiovascular: no chest pain and no palpitations Gastrointestinal: no nausea and no vomiting Genitourinary: no dysuria Musculoskeletal: no myalgia and no muscle weakness Integumentary: no rash and no lesions Neurologic: as per Subjective / HPI Psychiatric: no depression and no anxiety Hematologic / Lymphatic: no easy bleeding and no easy bruising Exam (Neuro) Constitutional: well developed and well nourished; no acute distress Eyes: normal visual [place] by confrontation, PERRL and + nystagmus; + EOM not intact Neurologic: Oriented to:: Person, Place and Time Memory: Short Term Intact and Remote Intact Attention: Span Intact and Concentration Intact Speech Fluency: Dysarthria Speech Aphasia: negative Aphasia Fund of Knowledge: Current Events, Past History and Vocabulary Cranial Nerves: Normal II, V, VIII, IX, X, XI and XII; Abnorm III, IV, or VII (Right lower facial droop (mimetic facial)) Motor Strength: Normal Lower Extremities and Normal Upper Extremities Motor Tone: Normal Lower Extremities and Normal Upper Extremities Muscle Bulk/Involuntary Movements: No Involuntary Movements; negative Muscle Atrophy Sensation: Light Touch Intact, Pain/Temperature Intact, Vibration Intact and Proprioception Intact Coordination: Limited Balance and Dysdiadochokinesia Laterality: Right; negative Finger-Nose Abnormal or Heel-West Abnormal Deep Tendon Reflexes: Rt Triceps: 2+, Lt Triceps: 2+, Rt Biceps: 2+, Lt Biceps: 2+, Rt Brachioradialis: 2+, Lt Brachioradialis: 2+, Rt Patellar: 2+, Lt Patellar: 2+, Rt Ankle: 1+ and Lt Ankle: 1+ Special Tests: negative Brandi nski Present Details: Patient has an internuclear ophthalmoplegia with rightward gaze, manifesting with left eye adductor insufficiency, right eye with rightward beating nystagmus with right gaze. Results & Data Vital Signs (Past 12 Hours) Vital Signs Temp Pulse Pulse Resp BP Pulse Ox O2 Del Method 08/09/24 10:39 36.4 C L 69 19 117/73 95 Room Air 08/09/24 07:49 36.8 C 66 18 133/78 97 Room Air 08/09/24 07:48 49 L 08/09/24 02:34 36.5 C 53 L 18 140/67 95 Room Air Laboratory Results WBC 6.51, hemoglobin 13.5, hematocrit 39.4, platelet count 172, sodium 139, potassium 3.6, BUN 25, creatinine 0.80, glucose 84, hemoglobin A1c 5.7, calcium 9.2, AST 18, ALT 11, high-sensitivity troponin less than 2.3, triglycerides 186, cholesterol 147, LDL 77, VLDL 37, HDL 33 Diagnostic Findings Electrocardiogram reveals a normal sinus rhythm, 65 bpm. Coding Level of Care Code 93425 INT INP/OBS CARE MIN Diagnoses Cerebellar stroke I63.9 VAL (internuclear ophthalmoplegia) H51.20 Laterality: unspecified laterality Chronic arterial ischemic stroke Z86.73 Time Spent (min) 90 Comment Total time includes patient contact, chart review, counseling, note preparation (2) VAL (internuclear ophthalmoplegia) Laterality: unspecified laterality Qualified Code(s): H51.20 - Internuclear ophthalmoplegia, unspecified eye
--- NOTE | 2024-08-09 12:28 | XCELERA ---
[id number]
--- NOTE | 2024-08-09 14:58 | Electrocardiogram Report ---
Test Reason : Blood Pressure : */* mmHG Vent. Rate : 65 BPM Atrial Rate : 65 BPM P-R Int : 144 ms QRS Dur : 66 ms QT Int : 456 ms P-R-T Axes : 113 209 61 degrees QTcB Int : 474 ms Suspect arm lead reversal, interpretation assumes no reversal Normal sinus rhythm Lateral infarct , age undetermined Abnormal ECG When compared with ECG of 08-Aug-2024 16:25, (unconfirmed) QRS axis Shifted left T wave inversion less evident in Lateral leads Confirmed by Omer Egan ([id number]) on 08/09/2024 2:57:42 PM Referred By: REFERRED SELF Confirmed By: Omer Egan
[2024-08-09 15:24] LABS: Appearance Urine Cloudy (Clear); Bacteria Urine Automated 4+ (None Seen); Bilirubin Urine Negative (Negative); Blood Urine Negative (Negative); Cast Urine Automated 0-2 /lpf (0-2); Color Urine Yellow; Epithelial Cell Urine Auto 0-2 /hpf (0-2); Glucose Urine UA Negative (Negative); Ketones Urine 1+ (Negative); Leukocyte Esterase Urine 1+ (Negative); Nitrite Urine Positive (Negative); Protein Urine Negative (Negative); RBC Urine Automated 0-2 /hpf (0-2); Specific Gravity Urine 1.024 (1.000-1.030); Urobilinogen Urine Negative (Negative); WBC Urine Automated 0-5 /hpf (0-5)
--- NOTE | 2024-08-09 17:13 | Hospitalist Progress Note ---
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: Plan Cerebellar Stroke, Internuclear ophthalmoplegia, chronic arterial ischemic stroke - Etiology between hypertension and atherosclerotic central disease, central embolic disease, and carotid artery disease - Based on risk factors, embolus unlikely to be atherosclerotic, lipid panel and BPs wnl - CTA neck did not show evidence of carotid artery disease - Patient may have had central embolus from heart - echocardiogram with bubble study - ambulatory cardiac Holter monitor to assess for a-fib - PT/OT consults placed - If A-fib will proceed with DOAC, if not will continue DAPT therapy with statin - Can use eye patch for continued eye discomfort Admission and Anticipated Discharge Date Admission Date: August 08, 2024 Supervising Physician Co-Signing Physician Notes I personally examined the patient and verified all saravia points of history and exam, discussed case, and agree with decision making with Dr Mckinney feeling better but still unsteady. speech normal now. vitals noted nad heent nc at mmm breathing unlabored no accessory muscles good effort skin no rashes no pallor or icterus CVA - DAPT, secondary risk reduction, rehab. otherwise as above. outpt rhythm monitoring. Subjective Patient is seen resting comfortably in bed this morning. Her acute condition is discussed, as well as the different types of pathologies that can precipitate her condition and the patient expresses understanding. Patient still complains of some dizziness, diplopia, and imbalance when taking short walks to the restroom and back to bed. Slurred speech improved, with mild R. sided facial droop. Physical Exam Physical Exam: General: patient resting comfortably, NAD, non-toxic in appearance, answers questions appropriately. Skin: warm, dry, intact HEENT: NC/AT, anicteric sclera, conjunctiva without injection, moist mucus membranes. Heart: +S1/S2, regular, no m/r/g Lungs: equal air entry bilaterally, no rales/rhonchi/wheezes Abd: +BS, soft, NT/ND Ext: warm, no clubbing/cyanosis or edema, Crystal's neg. Neuro: nonfocal, speech intact, no facial droop, moving all extremities. Results & Data Results & Data Vital Signs (Past 12 Hours) Vital Signs Temp Pulse Pulse Resp BP Pulse Ox O2 Del Method 08/09/24 15:30 36.7 C 70 18 120/73 93 Room Air 08/09/24 15:13 70 08/09/24 10:39 36.4 C L 69 19 117/73 95 Room Air 08/09/24 07:49 36.8 C 66 18 133/78 97 Room Air 08/09/24 07:48 49 L Resident Activity Tracking Resident Involvement: Resident Care Provided Care Provided: Adult Hospital Medicine (2) VAL (internuclear ophthalmoplegia) Laterality: unspecified laterality Qualified Code(s): H51.20 - Internuclear ophthalmoplegia, unspecified eye
--- NOTE | 2024-08-09 18:49 | Billing Data ---
Date of Service August 09, 2024 Coding Level of Care Code 39184 SUB INP/OBS CARE
[2024-08-10 05:19] LABS: Basophils # (auto) 0.07 K/uL (0.00-0.20); Basophils % (auto) 1.3 %; Eosinophils # (auto) 0.23 K/uL (0.00-0.50); Eosinophils % (auto) 4.4 %; Hematocrit (blood only) 39.2 % (37.0-47.0); Hemoglobin 13.1 g/dl (12.0-16.0); Immature Granulocytes # (auto) 0.01 K/uL (0.01-0.20); Immature Granulocytes % (auto) 0.2 %; Lymphocytes # (auto) 2.09 K/uL (1.20-3.40); Mean Corpuscular Hemoglobin 28.9 pg (25.0-34.0); Mean Corpuscular Hgb Conc 33.4 g/dL (32.0-36.0); Mean Corpuscular Volume 86.5 fL (80.0-100.0); Monocytes % (auto) 9.6 %; Neutrophils # (auto) 2.33 K/uL (1.40-6.50); Neutrophils % (auto) 44.5 %; Platelet Count 168 K/uL (130-400); RDW Coefficient of Variation 12.5 % (11.5-14.5); RDW Standard Deviation 39.4 fL (36.4-46.3); Red Blood Count 4.53 M/uL (4.20-5.40); White Blood Count 5.23 K/ul (4.8-10.8)
[2024-08-10 05:23] LABS: BUN Creatinine Ratio 21.4 (10-20); Calcium 8.8 mg/dl (8.6-10.3); Creatinine Clr Calc Pharmacy 34.1 ml/min; Potassium 3.7 mmol/L (3.5-5.1)
--- NOTE | 2024-08-10 06:45 | Hospitalist Progress Note ---
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: Plan Cerebellar Stroke, Internuclear ophthalmoplegia, chronic arterial ischemic stroke - Etiology between hypertension and atherosclerotic central disease, central embolic disease, and carotid artery disease - Based on risk factors, embolus unlikely to be atherosclerotic, lipid panel and BPs wnl - CTA neck did not show evidence of carotid artery disease - Patient may have had central embolus from heart - echocardiogram with bubble study - ambulatory cardiac Holter monitor to assess for a-fib - PT/OT recommend therapy - If A-fib will proceed with DOAC, if not will continue DAPT therapy with statin - Can use eye patch for continued eye discomfort - No evidence of a-fib, or DVT, will continue plavix/aspirin - Awaiting placement at [facility] for PT Admission and Anticipated Discharge Date Admission Date: August 08, 2024 Supervising Physician Co-Signing Physician Notes I personally examined the patient and verified all saravia points of history and exam, discussed case, and agree with decision making with Dr Mckinney feeling ok overall awaiting rehab. no urinary sx. vitals noted nad heent nc at mmm breathing unlabored no accessory muscles good effort skin no rashes no pallor or icterus CVA - DAPT, secondary risk reduction, rehab. venous dopplers negative. otherwise as above. outpt rhythm monitoring. asymptomatic bacteriuria - no treatment necessary DVT proph - lovenox otherwise as above Subjective Patient is feeling better today, still some imbalance, and difficulty ambu lating. No slurred speech or other adverse symptoms. Waiting on placement for PT. Physical Exam Physical Exam: General: patient resting comfortably, NAD, non-toxic in appearance, answers questions appropriately. Skin: warm, dry, intact HEENT: NC/AT, anicteric sclera, conjunctiva without injection, moist mucus membranes. Heart: +S1/S2, regular, no m/r/g Lungs: equal air entry bilaterally, no rales/rhonchi/wheezes Abd: +BS, soft, NT/ND Ext: warm, no clubbing/cyanosis or edema, Crystal's neg. Neuro: nonfocal, speech intact, no facial droop, moving all extremities. Results & Data Results & Data Vital Signs (Past 12 Hours) Vital Signs Temp Pulse Pulse Resp BP Pulse Ox O2 Del Method 08/10/24 03:50 36.6 C 68 18 118/80 95 Room Air 08/09/24 23:15 36.5 C 65 17 102/64 96 Room Air 08/09/24 22:47 66 08/09/24 19:38 36.2 C L 78 19 136/82 95 Room Air (2) VAL (internuclear ophthalmoplegia) Laterality: unspecified laterality Qualified Code(s): H51.20 - Internuclear ophthalmoplegia, unspecified eye
[2024-08-10] MEDS: CLOPIDOGREL BISULFATE 75 MG TAB PO SCH (08:06)
[2024-08-10] MEDS: ASPIRIN 81 MG ECTAB PO SCH (08:06)
--- NOTE | 2024-08-10 10:42 | Ultrasound Report ---
BILATERAL LOWER EXTREMITY VENOUS DOPPLER HISTORY: Acute pain and swelling of the lower legs PFO, CVA COMPARISON STUDY: None. FINDINGS: There is normal compressibility, flow, and augmentation within the bilateral lower extremit y deep venous systems. IMPRESSION: No DVT within the right or left lower extremity. ACT 112: Negative or not required by law. Electronically signed by: Javad Abel M.D. 08/10/2024 10:41 AM
--- NOTE | 2024-08-10 13:55 | Pharmacy Report ---
- Date of Service August 10, 2024 - Pharmacy CVA/TIA Medication Review Medications to Prevent Stroke handout has been added to the patients discharge packet. Antiplatelet(s) * Aspirin 81 mg PO daily + Clopidogrel 75 mg PO daily * Dual antiplatelet therapy x 21 days followed by clopidogrel monotherapy Cholesterol * High intensity statin deferred due to age >75 and lipid panel results DVT Prophylaxis * Enoxaparin SQ Therapeutic Anticoagulation * No past history of Afib/Aflutter noted * Neuro recommended patient undergo ambulatory cardiac Holter monitoring Type 2 Diabetes * Patient does not have T2DM
--- NOTE | 2024-08-10 16:50 | Billing Data ---
Date of Service August 10, 2024 Coding Level of Care Code 67238 SUB INP/OBS CARE
[2024-08-11 06:13] LABS: Basophils # (auto) 0.06 K/uL (0.00-0.20); Eosinophils # (auto) 0.29 K/uL (0.00-0.50); Eosinophils % (auto) 4.7 %; Hematocrit (blood only) 38.1 % (37.0-47.0); Hemoglobin 12.8 g/dl (12.0-16.0); Immature Granulocytes # (auto) 0.01 K/uL (0.01-0.20); Immature Granulocytes % (auto) 0.2 %; Lymphocytes # (auto) 2.49 K/uL (1.20-3.40); Lymphocytes % (auto) 40.3 %; Mean Corpuscular Hemoglobin 29.4 pg (25.0-34.0); Mean Corpuscular Hgb Conc 33.6 g/dL (32.0-36.0); Mean Corpuscular Volume 87.4 fL (80.0-100.0); Monocytes # (auto) 0.68 K/uL (0.11-0.59); Neutrophils # (auto) 2.65 K/uL (1.40-6.50); Neutrophils % (auto) 42.8 %; Platelet Count 158 K/uL (130-400); RDW Coefficient of Variation 12.4 % (11.5-14.5); Red Blood Count 4.36 M/uL (4.20-5.40); White Blood Count 6.18 K/ul (4.8-10.8)
[2024-08-11 06:28] LABS: BUN Creatinine Ratio 20.6 (10-20); Calcium 8.8 mg/dl (8.6-10.3); Creatinine Clr Calc Pharmacy 34.4 ml/min; Potassium 3.8 mmol/L (3.5-5.1)
--- NOTE | 2024-08-11 07:51 | Discharge Summary ---
Date of Service August 11, 2024 Admission HPI Per Admitting Provider Holly Max is an 84 year old female who presents to the ER with slurred speech, diplopia, right facial droop, right tongue deviation. Last known well 10pm yesterday. She reports waking up with symptoms this morning around 7am. She felt off but couldn't figure what the problem was but with hindsight she was having diplopia. She did not go to shinto but watched it on TV. This alerted her son that something was wrong and she was still in bed when he went around to see her and was unable to get out of bed due to being unbalanced. He noticed she was rubbing her eye as she was seeing double, right facial droop, she couldn't walk straight and her speech was more slurred. Therefore called EMS and brought her to the ER. She reports feeling her normal self yesterday. Per family at beside her facial droop has improved since coming to the ER. Principal Diagnosis Acute CVA Discharge Exam General: patient resting comfortably, NAD, non-toxic in appearance, answers questions appropriately. Skin: warm, dry, intact HEENT: NC/AT, anicteric sclera, conjunctiva without injection, moist mucus membranes. Heart: +S1/S2, regular, no m/r/g Lungs: equal air entry bilaterally, no rales/rhonchi/wheezes Abd: +BS, soft, NT/ND Ext: warm, no clubbing/cyanosis or edema, Crystal's neg. Neuro: nonfocal, speech intact, no facial droop, moving all extremities. Discharge Data Allergies Allergy/AdvReac Type Severity Reaction Status Date / Time No Known Allergies Allergy Unverified 08/08/24 17:54 Consultations 08/08/24 18:09 ED Decision to Admit Stat 08/08/24 20:39 Consult Neurology Routine Ordered Studies 08/08/24 16:23 CT angio head w con Stat CT angio neck with con Stat CT head/brain wo con Stat 08/08/24 18:13 MRI Brain [MR brain wo con] Stat 08/10/24 07:38 US venous doppler LE BI Routine Laboratory Results WBC 6.18 K/ul (4.8-10.8) 08/11/24 05:37 RBC 4.36 M/uL (4.20-5.40) 08/11/24 05:37 Hgb 12.8 g/dl (12.0-16.0) 08/11/24 05:37 POC Hgb 14.3 g/dl (12.0-16.0) 08/08/24 16:32 Hct 38.1 % (37.0-47.0) 08/11/24 05:37 POC Hct 42 % (37-47) 08/08/24 16:32 MCV 87.4 fL (80.0-100.0) 08/11/24 05:37 MCH 29.4 pg (25.0-34.0) 08/11/24 05:37 MCHC 33.6 g/dL (32.0-36.0) 08/11/24 05:37 RDW Std Deviation 40.0 fL (36.4-46.3) 08/11/24 05:37 RDW Coeff of Mayda 12.4 % (11.5-14.5) 08/11/24 05:37 Plt Count 158 K/uL (130-400) 08/11/24 05:37 MPV 12.0 fL (9.4-12.4) 08/11/24 05:37 Immature Gran % (Auto) 0.2 % 08/11/24 05:37 Neut % (Auto) 42.8 % 08/11/24 05:37 Lymph % (Auto) 40.3 % 08/11/24 05:37 [place] % (Auto) 11.0 % 08/11/24 05:37 Eos % (Auto) 4.7 % 08/11/24 05:37 Baso % (Auto) 1.0 % 08/11/24 05:37 Neut # (Auto) 2.65 K/uL (1.40-6.50) 08/11/24 05:37 Lymph # (Auto) 2.49 K/uL (1.20-3.40) 08/11/24 05:37 [place] # (Auto) 0.68 K/uL (0.11-0.59) H 08/11/24 05:37 Eos # (Auto) 0.29 K/uL (0.00-0.50) 08/11/24 05:37 Baso # (Auto) 0.06 K/uL (0.00-0.20) 08/11/24 05:37 Immature Gran # (Auto) 0.01 K/uL (0.01-0.20) 08/11/24 05:37 PT 10.8 Seconds (9.0-12.0) 08/08/24 16:30 INR 1.0 (0.9-1.1) 08/08/24 16:30 APTT 27 Seconds (21-31) 08/08/24 16:30 PTT Ratio 1.0 08/08/24 16:30 POC Sodium 140 mmol/L (135-144) 08/08/24 16:32 Sodium 143 mmol/L (136-145) 08/11/24 05:37 POC Potassium 4.0 mmol/L (3.3-5.0) 08/08/24 16:32 Potassium 3.8 mmol/L (3.5-5.1) 08/11/24 05:37 POC Chloride 103 mmol/L (101-112) 08/08/24 16:32 Chloride 111 mmol/L (98-107) H 08/11/24 05:37 Carbon Dioxide 26 mmol/L (21-32) 08/11/24 05:37 POC Total CO2 25 mmol/L (24-31) 08/08/24 16:32 Anion Gap 6 (3-11) 08/11/24 05:37 POC Anion Gap 17.0 mmol/L (16-25) 08/08/24 16:32 POC BUN 26 mg/dl (7-18) H 08/08/24 16:32 BUN 20 mg/dl (6-23) 08/11/24 05:37 Creatinine 0.97 mg/dl (0.6-1.2) 08/11/24 05:37 POC Creatinine 1.2 mg/dl (0.6-1.3) 08/08/24 16:32 Est Cr Clr Drug Dosing 34.4 ml/min 08/11/24 05:37 eGFR 56.91 08/11/24 05:37 BUN/Creatinine Ratio 20.6 (10-20) H 08/11/24 05:37 Glucose 105 mg/dl (70-99(Fasting)) H 08/11/24 05:37 POC Glucose (other) 98 mg/dl (70-99) 08/08/24 16:32 Estimat Average Glucose 117 mg/dl 08/09/24 04:12 Hemoglobin A1c 5.7 % (4.5-5.6) H 08/09/24 04:12 Calcium 8.8 mg/dl (8.6-10.3) 08/11/24 05:37 POC Ioniz Calcium Ernie 1.22 mmol/l (1.12-1.32) 08/08/24 16:32 Magnesium 2.3 mg/dl (1.7-2.4) 08/08/24 16:30 Total Bilirubin 1.2 mg/dl (0.2-1.0) H 08/08/24 16:30 AST 18 U/L (13-39) 08/08/24 16:30 ALT 11 U/L (7-52) 08/08/24 16:30 Alkaline Phosphatase 54 U/L (34-104) 08/08/24 16:30 Troponin I High Sens < 2.3 pg/ml (0-14) 08/08/24 16:30 Total Protein 7.2 gm/dl (6.0-8.3) 08/08/24 16:30 Albumin 4.1 gm/dl (3.4-5.0) 08/08/24 16:30 Globulin 3.1 gm/dl (2.5-4.0) 08/08/24 16:30 Albumin/Globulin Ratio 1.3 (0.9-2) 08/08/24 16:30 Triglycerides 186 mg/dl (0-150) H 08/09/24 04:12 Cholesterol 147 mg/dl (0-200) 08/09/24 04:12 LDL Cholesterol, Calc 77 mg/dl 08/09/24 04:12 VLDL Cholesterol, Calc 37 mg/dl (0-30) H 08/09/24 04:12 HDL Cholesterol 33 mg/dl 08/09/24 04:12 Cholesterol/HDL Ratio 4.5 (0-5) 08/09/24 04:12 Urine Color Yellow 08/09/24 15:00 Urine Appearance Cloudy (Clear) A 08/09/24 15:00 Urine pH 7.0 (4.5-7.5) 08/09/24 15:00 Ur Specific [place] 1.024 (1.000-1.030) 08/09/24 15:00 Urine Protein Negative (Negative) 08/09/24 15:00 Urine Glucose (UA) Negative (Negative) 08/09/24 15:00 Urine Ketones 1+ (Negative) H 08/09/24 15:00 Urine Blood Negative (Negative) 08/09/24 15:00 Urine Nitrite Positive (Negative) A 08/09/24 15:00 Urine Bilirubin Negative (Negative) 08/09/24 15:00 Urine Urobilinogen Negative (Negative) 08/09/24 15:00 Ur Leukocyte Esterase 1+ (Negative) H 08/09/24 15:00 Urine WBC (Auto) 0-5 /hpf (0-5) 08/09/24 15:00 Urine RBC (Auto) 0-2 /hpf (0-2) 08/09/24 15:00 U Hyaline Cast (Auto) 0-2 /lpf (0-2) 08/09/24 15:00 U Epithel Cells (Auto) 0-2 /hpf (0-2) 08/09/24 15:00 Urine Bacteria (Auto) 4+ (None Seen) H 08/09/24 15:00 Impressions Chest X-Ray 08/08/24 16:23 EXAM: Radiograph of the Chest 1 View INDICATION: Stroke alert. TECHNIQUE: Frontal view of the chest. COMPARISON: No relevant prior studies available. FINDINGS: Lungs and pleural spaces: No consolidation or pulmonary edema. No pleural effusion or pneumothorax. Heart: Shape and configuration within normal limits allowing for technique. Mediastinum: Normal contour. Bones/joints: Degenerative changes noted throughout the spine. No acute osseous abnormality seen. Soft tissues: No abnormality noted. No radiopaque foreign body noted. Vasculature: The aorta is mildly ectatic in the arch calcified. Upper abdomen: No abnormality noted. IMPRESSION: No acute cardiopulmonary disease. ACT 112: Negative or not required by law. Electronically signed by Holly Colin 08-08-2024 4:[address] 08/08/24 16:23 EXAM: CT Head Without Intravenous Contrast INDICATION: Visual changes and slurred speech. TECHNIQUE: Axial computed tomography images of the head/brain without intravenous contrast. Sagittal and/or coronal reformats are provided. Sagittal and coronal reformatted images were created and reviewed. This CT exam was performed using one or more of the following dose reduction techniques: automated exposure control, adjustment of the mA and/or kV according to patient size, and/or use of iterative reconstruction technique. COMPARISON: No relevant prior studies available. FINDINGS: Limitations: None. Brain and extra-axial spaces: There is age appropriate cortical atrophy and chronic ischemic periventricular white matter hypodensity. No acute infarct, hemorrhage or mass noted. Left frontal encephalomalacia consistent with old small infarct. Bones/joints: No acute changes. Soft tissues: No significant abnormality noted. Vasculature: No acute abnormality noted. Sinuses: There is mild left sphenoid sinus mucosal thickening or fluid. Mastoid air cells: No mastoid effusion. Orbits: No significant abnormality noted. IMPRESSION: Cerebral atrophy and old left frontal infarct. No acute changes. ACT 112: Negative or not required by law. Electronically signed by Holly Colin 08-08-2024 5:49 PM Head CTA 08/08/24 16:23 EXAM: CT Angiography Head and Neck With Intravenous Contrast INDICATION: Visual changes and slurred speech. TECHNIQUE: [place] [facility] [place]/head and neck CT angiography protocol performed with intravenous contrast. Sagittal and coronal reformatted images were created and reviewed. This CT exam was performed using one or more of the following dose reduction techniques: automated exposure control, adjustment of the mA and/or kV according to patient size, and/or use of iterative reconstruction technique. MIP reconstructed images were created and reviewed. CONTRAST: 118ml of Optiray 320 was administered intravenously. COMPARISON: None. FINDINGS: HEAD: Right anterior cerebral artery: No abnormality noted. No occlusion or significant stenosis. Anterior communicating artery is present. No aneurysm. Right middle cerebral artery: No abnormality noted. No occlusion or significant stenosis. No aneurysm. Right posterior cerebral artery: No abnormality noted. No occlusion or significant stenosis. No aneurysm. Right intracranial internal carotid artery: No abnormality noted. No significant stenosis. No dissection or occlusion. Right intracranial vertebral artery: No abnormality noted. No significant stenosis. No dissection or occlusion. Left anterior cerebral artery: No abnormality noted. No occlusion or significant stenosis. No aneurysm. Left middle cerebral artery: No abnormality noted. No occlusion or significant stenosis. No aneurysm. Left posterior cerebral artery: No abnormality noted. No occlusion or significant stenosis. No aneurysm. Left intracranial internal carotid artery: No abnormality noted. No significant stenosis. No dissection or occlusion. Left intracranial vertebral artery: No abnormality noted. No significant stenosis. No dissection or occlusion. Basilar artery: No abnormality noted. No occlusion or significant stenosis. No aneurysm. Other vasculature: No vascular malformation. Sinuses: There is mild chronic left sphenoid and bilateral maxillary sinus thickening. NECK: Right common carotid artery: No abnormality noted. No significant stenosis. No dissection or occlusion. Right extracranial internal carotid artery: Small focal proximal calcific plaque. No significant stenosis. No dissection or occlusion. Right external carotid artery: No abnormality noted. No occlusion. Right extracranial vertebral artery: No abnormality noted. No significant stenosis. No dissection or occlusion. Left common carotid artery: No abnormality noted. No significant stenosis. No dissection or occlusion. Left extracranial internal carotid artery: No abnormality noted. No significant stenosis. No dissection or occlusion. Left external carotid artery: No abnormality noted. No occlusion. Left extracranial vertebral artery: No abnormality noted. No significant stenosis. No dissection or occlusion. Lung apices: No significant abnormality noted. HEAD and NECK: Bones/joints: No significant abnormality. Soft tissues: No abnormality noted. CAROTID STENOSIS REFERENCE USING NASCET CRITERIA: % ICA stenosis = (1 - narrowest ICA diameter/diameter of distal cervical ICA) x 100. Mild - <50% stenosis. Moderate - 50-69% stenosis. Severe - 70-94% stenosis. Near occlusion - 95-99% stenosis. Occluded - 100% stenosis. IMPRESSION: 1. No large vessel occlusion, aneurysm or dissection in the neck or brain. 2. No carotid stenosis. ACT 112: Negative or not required by law. Electronically signed by Holly Colin 08-08-2024 5:52 PM Neck CTA 08/08/24 16:23 EXAM: CT Angiography Head and Neck With Intravenous Contrast INDICATION: Visual changes and slurred speech. TECHNIQUE: [place] [facility] [place]/head and neck CT angiography protocol performed with intravenous contrast. Sagittal and coronal reformatted images were created and reviewed. This CT exam was performed using one or more of the following dose reduction techniques: automated exposure control, adjustment of the mA and/or kV according to patient size, and/or use of iterative reconstruction technique. MIP reconstructed images were created and reviewed. CONTRAST: 118ml of Optiray 320 was administered intravenously. COMPARISON: None. FINDINGS: HEAD: Right anterior cerebral artery: No abnormality noted. No occlusion or significant stenosis. Anterior communicating artery is present. No aneurysm. Right middle cerebral artery: No abnormality noted. No occlusion or significant stenosis. No aneurysm. Right posterior cerebral artery: No abnormality noted. No occlusion or significant stenosis. No aneurysm. Right intracranial internal carotid artery: No abnormality noted. No significant stenosis. No dissection or occlusion. Right intracranial vertebral artery: No abnormality noted. No significant stenosis. No dissection or occlusion. Left anterior cerebral artery: No abnormality noted. No occlusion or significant stenosis. No aneurysm. Left middle cerebral artery: No abnormality noted. No occlusion or significant stenosis. No aneurysm. Left posterior cerebral artery: No abnormality noted. No occlusion or significant stenosis. No aneurysm. Left intracranial internal carotid artery: No abnormality noted. No significant stenosis. No dissection or occlusion. Left intracranial vertebral artery: No abnormality noted. No significant stenosis. No dissection or occlusion. Basilar artery: No abnormality noted. No occlusion or significant stenosis. No aneurysm. Other vasculature: No vascular malformation. Sinuses: There is mild chronic left sphenoid and bilateral maxillary sinus thickening. NECK: Right common carotid artery: No abnormality noted. No significant stenosis. No dissection or occlusion. Right extracranial internal carotid artery: Small focal proximal calcific plaque. No significant stenosis. No dissection or occlusion. Right external carotid artery: No abnormality noted. No occlusion. Right extracranial vertebral artery: No abnormality noted. No significant stenosis. No dissection or occlusion. Left common carotid artery: No abnormality noted. No significant stenosis. No dissection or occlusion. Left extracranial internal carotid artery: No abnormality noted. No significant stenosis. No dissection or occlusion. Left external carotid artery: No abnormality noted. No occlusion. Left extracranial vertebral artery: No abnormality noted. No significant stenosis. No dissection or occlusion. Lung apices: No significant abnormality noted. HEAD and NECK: Bones/joints: No significant abnormality. Soft tissues: No abnormality noted. CAROTID STENOSIS REFERENCE USING NASCET CRITERIA: % ICA stenosis = (1 - narrowest ICA diameter/diameter of distal cervical ICA) x 100. Mild - <50% stenosis. Moderate - 50-69% stenosis. Severe - 70-94% stenosis. Near occlusion - 95-99% stenosis. Occluded - 100% stenosis. IMPRESSION: 1. No large vessel occlusion, aneurysm or dissection in the neck or brain. 2. No carotid stenosis. ACT 112: Negative or not required by law. Electronically signed by Holly Colin 08-08-2024 5:53 PM Brain MRI 08/08/24 18:13 CR Exam(s): MRI HEAD Without Contrast EXAM: MR Head Without Intravenous Contrast CLINICAL HISTORY: Reason for exam: Slurred speech, diplopia, right facial droop. TECHNIQUE: Magnetic resonance images of the head/brain without intravenous contrast in multiple planes. COMPARISON: Prior head CT from August 08, 2024. FINDINGS: Brain: There are 2 small acute ischemic injuries within the right cerebellum without evidence of hemorrhagic transformation. Remote ischemic injuries of the cerebellum. There is remote ischemic injury in the left frontal lobe with encephalomalacia and gliosis. Moderate nonspecific white matter changes. No mass. No hemorrhage. The flow voids of the base the brain are intact. Ventricles: Moderate ventriculomegaly. Bones/joints: Unremarkable. No acute fracture. Sinuses: Chronic left sphenoid sinusitis with air-fluid level. No acute sinusitis. Mastoid air cells: Unremarkable as visualized. No mastoid effusion. Orbits: Bilateral lens replacements. IMPRESSION: There are 2 small acute ischemic injuries within the right cerebellum without evidence of hemorrhagic transformation. Communications: Verify Receipt Electronically signed by: Bia Mike MD 08/09/24 01:36 AM Venous Doppler Study 08/10/24 07:38 BILATERAL LOWER EXTREMITY VENOUS DOPPLER HISTORY: Acute pain and swelling of the lower legs PFO, CVA COMPARISON STUDY: None. FINDINGS: There is normal compressibility, flow, and augmentation within the bilateral lower extremity deep venous systems. IMPRESSION: No DVT within the right or left lower extremity. ACT 112: Negative or not required by law. Electronically signed by: Javad Abel M.D. 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: Plan Cerebellar Stroke, Internuclear ophthalmoplegia, chronic arterial ischemic stroke - Etiology between hypertension and atherosclerotic central disease, central embolic disease, and carotid artery disease - Based on risk factors, embolus unlikely to be atherosclerotic, lipid panel and BPs wnl - CTA neck did not show evidence of carotid artery disease - Patient may have had central embolus from heart - echocardiogram with bubble study - ambulatory cardiac Holter monitor to assess for a-fib - PT/OT recommend therapy - If A-fib will proceed with DOAC, if not will continue DAPT therapy with statin - Can use eye patch for continued eye discomfort - No evidence of a-fib, or DVT, will continue plavix/aspirin - Awaiting placement at [facility] for PT Total Time Total Time Spent Total Time Spent (In Minutes): See attending attestation Discharge Plan Discharge Items Patient Disposition: Transfer Inpatient Rehab Fac Reason For Visit: ACUTE CVA Discharge Diagnosis: Acute CVA Activity: Per Instructions section Non-emergency contact: Primary Care Provider Call non-emergency contact if: your symptoms worsen and your pain is not controlled Follow-up/Referrals: Stacy Plascencia PA-C [Primary Care Provider] - Diet: Regular Addtl Attending Provider Instructions: Cerebellar Stroke, Internuclear ophthalmoplegia, chronic arterial ischemic stroke - Etiology between hypertension and atherosclerotic central disease, central embolic disease, and carotid artery disease - Based on risk factors, embolus unlikely to be atherosclerotic, lipid panel and BPs wnl - CTA neck did not show evidence of carotid artery disease - Patient may have had central embolus from heart - echocardiogram with bubble study - manager logistic to assess for a-fib negative - PT/OT recommend inpatient rehab - If A-fib will proceed with DOAC, if not will continue DAPT therapy - Can use eye patch for continued eye discomfort - No evidence of a-fib, or DVT, will continue plavix/aspirin - Placement at [facility] for inpatient PT Pending Studies at Discharge: No Stand-Alone Forms: My [facility] Skilled Items Patient informed of condition?: Yes DNR: Yes Discharge Level of Care: Acute rehab Communicable Disease: No Discharge Prognosis: Stable Lines: None Urinary Catheter: No Medications and DC Order Prescriptions: New clopidogrel 75 mg Tablet 75 mg PO QAM 30 Days Qty: 30 0RF Continued propranolol 60 mg capsule,extended release 24 hr 60 mg PO DAILY aspirin 81 mg Tablet,Delayed Release (Dr/Ec) 81 mg PO QAM cimetidine 200 mg Tablet 200 mg PO DAILY hydrochlorothiazide 25 mg tablet 25 mg PO DAILY vitamin A-vitamin C-vit E-min Tablet 1 tab PO DAILY calcium carbonate-vitamin D3 [Calcium 600 + D(3)] 600 mg-10 mcg (400 unit) Tablet 1 tab PO DAILY cholecalciferol (vitamin D3) [Vitamin D3] 125 mcg (5,000 unit) Tablet 125 mcg PO DAILY potassium citrate 99 mg Capsule 99 mg PO DAILY Discharge Orders: Discharge Order (Routine); Ordered 08/11/24 Ordered By: Rolf Mckinney Admission Data Admit Date/Time: 08/08/24 19:30 Attending Provider: Fermín Watts Admit Provider: Ruddy Gracia Primary Care Provider: Stacy Plascencia Other Providers: Ruddy Garcia; Petar Retana; [facility]; [facility] Other Interventions: Discharge Summary Assessment (RN) Last Done: 08/11/24 10:10 Supervising Physician Co-Signing Physician Notes I personally examined the patient and verified all saravia points of history and exam, discussed case, and agree with decision making with Dr Mckinney no complaints for rehab today. vitals noted nad heent nc at mmm breathing unlabored no accessory muscles good effort skin no rashes no pallor or icterus CVA - DAPT, secondary risk reduction, rehab. venous dopplers negative. otherwise as above. outpt rhythm monitoring. asymptomatic bacteriuria - no treatment necessary DVT proph - lovenox otherwise as above, stable for rehab today Resident Activity Tracking Resident Involvement: Resident Care Provided Care Provided: Adult Hospital Medicine
[2024-08-11 08:14] VITALS: RESP 18
[2024-08-11] MEDS ORDERED: STROKE PATIENT DISCHARGE STA (09:15)
[2024-08-11 12:17] VITALS: BP 121/72; TEMP 97.5; O2SAT 96
[2024-08-11 14:32] VITALS: PULSE 68
--- NOTE | 2024-08-11 18:20 | Billing Data ---
Date of Service August 11, 2024 Coding Level of Care Code 52289 IN/OBS DISCH 30 MIN/LESS
== END 2024-08-11 16:17 | DRG 66 ==
LOC: ED 16:17 → 4W 19:30 → SUATTDRO 19:30 → 4W 20:03

== ENCOUNTER 2025-09-04 17:22 | Inpatient (IN) ==
[2025-09-04] MEDS: OPTIRAY 320 125ml IV ONE (17:30)
--- NOTE | 2025-09-04 17:34 | Emergency Department Note ---
History of Present Illness General Chief complaint: Stroke/CVA Symptoms Stated complaint: Stroke symptoms Time Seen by Provider: 09/04/25 17:29 Source: patient Mode of arrival: EMS Limitations: no limitations History of Present Illness Patient is an 85-year-old female with history of prior CVA on dual antiplatelet therapy who presents for slurred speech, blurry vision, facial droop that started around 130 today. Initially started with blurry vision in the right eye. Around 1500 she started to develop slurred speech and a right-sided facial droop that are new. Blurry vision has resolved since it began. Speech has improved significantly according to family at bedside. No new numbness or weakness reported. Patient is compliant with her antiplatelet agents. Per EMS she was noted to have a brief episode of atrial flutter versus A-fib which is new for her. Denies any headache, neck pain, eye pain, chest pain, shortness of breath. Home Medications Medication Instructions Recorded Confirmed Type aspirin 81 mg tablet,delayed 81 mg PO QAM 08/08/24 09/04/25 History release hydrochlorothiazide 25 mg tablet 25 mg PO DAILY 08/08/24 09/04/25 History propranolol 60 mg capsule,24 60 mg PO DAILY 08/08/24 09/04/25 History hr,extended release calcium carb 1,200 mg-vit D3 1,000 1 tab PO DAILY 09/04/25 09/04/25 History unit-minerals chewable tablet cholecalciferol (vitamin D3) 25 25 mcg PO DAILY 09/04/25 09/04/25 History mcg (1,000 unit) tablet (Vitamin D3) clopidogrel 75 mg tablet 75 mg PO DAILY 09/04/25 09/04/25 History potassium 99 mg tablet 99 mg PO DAILY 09/04/25 09/04/25 History Allergies Allergy/AdvReac Type Severity Reaction Status Date / Time No Known Allergies Allergy Unverified 08/08/24 17:54 Past Med/Surg History Problem List (Updated 09/04/25 @ 20:07 by Ney Rivera MD) Cerebrovascular accident (Acute) Cerebellar stroke VAL (internuclear ophthalmoplegia) (Acute) Medical History (Updated 09/04/25 @ 20:07 by Ney Rivera MD) Chronic arterial ischemic stroke Stroke-like symptoms Irritable bowel syndrome GERD (gastroesophageal reflux disease) History of breast cancer 2013 Right - s/p lumpectomy and raditation Hypertension History of stroke No residual deficits Surgical History (Updated 08/08/24 @ 19:38 by Ruddy Garcia MD) History of lumpectomy of right breast Social History Smoking Status: Never smoker Hx Alcohol Use: No Hx Substance Use: No Preferred Language: Kosovan Communication Ability: Impaired Chrome Plater Required: No Beliefs That Will Affect Care: None Current Living Situation: Family Current Living Situation Comment: lives with son, Mark Feels Safe at Home: Yes Assistive Devices: None Review of Systems Review of systems negative outside of positive findings mentioned in HPI. Physical Exam Vital Signs Vital Signs - 24 hr 09/04/25 17:25 09/04/25 17:25 09/04/25 17:42 Temperature 36.7 C Temperature Source Oral Pulse Rate 71 62 Pulse Rate [Apical] Pulse Rate from SpO2 Sensor Respiratory Rate 20 24 Blood Pressure 138/74 Blood Pressure [Right Arm] Blood Pressure Mean 95 Blood Pressure Mean [Right Arm] Pulse Oximetry 98 96 Oxygen Delivery Method Nasal Cannula Room Air Oxygen Flow Rate Sepsis Recent Fever Within 48 Hours No Sepsis New/Unexplained Change in Mental Status N/A Sepsis Action Taken by Nursing No Action Required 09/04/25 17:45 09/04/25 17:48 09/04/25 17:49 Temperature Temperature Source Pulse Rate 62 52 L Pulse Rate [Apical] Pulse Rate from SpO2 Sensor Respiratory Rate 25 H Blood Pressure 138/71 Blood Pressure [Right Arm] Blood Pressure Mean 91 Blood Pressure Mean [Right Arm] Pulse Oximetry 99 Oxygen Delivery Method Oxygen Flow Rate Sepsis Recent Fever Within 48 Hours Sepsis New/Unexplained Change in Mental Status Sepsis Action Taken by Nursing 09/04/25 17:49 09/04/25 17:49 09/04/25 17:49 Temperature Temperature Source Pulse Rate Pulse Rate [Apical] Pulse Rate from SpO2 Sensor Respiratory Rate Blood Pressure 138/71 138/71 138/71 Blood Pressure [Right Arm] Blood Pressure Mean 91 91 91 Blood Pressure Mean [Right Arm] Pulse Oximetry Oxygen Delivery Method Oxygen Flow Rate Sepsis Recent Fever Within 48 Hours Sepsis New/Unexplained Change in Mental Status Sepsis Action Taken by Nursing 09/04/25 17:49 09/04/25 17:51 09/04/25 18:00 Temperature Temperature Source Pulse Rate 58 L Pulse Rate [Apical] Pulse Rate from SpO2 Sensor 61 Respiratory Rate 25 H Blood Pressure 138/71 144/99 H Blood Pressure [Right Arm] Blood Pressure Mean 91 109 Blood Pressure Mean [Right Arm] Pulse Oximetry 99 Oxygen Delivery Method Oxygen Flow Rate Sepsis Recent Fever Within 48 Hours Sepsis New/Unexplained Change in Mental Status Sepsis Action Taken by Nursing 09/04/25 18:00 09/04/25 18:00 09/04/25 18:00 Temperature Temperature Source Pulse Rate Pulse Rate [Apical] Pulse Rate from SpO2 Sensor Respiratory Rate Blood Pressure 144/99 H 144/99 H 144/99 H Blood Pressure [Right Arm] Blood Pressure Mean 109 109 109 Blood Pressure Mean [Right Arm] Pulse Oximetry Oxygen Delivery Method Oxygen Flow Rate Sepsis Recent Fever Within 48 Hours Sepsis New/Unexplained Change in Mental Status Sepsis Action Taken by Nursing 09/04/25 18:00 09/04/25 18:00 09/04/25 18:12 Temperature Temperature Source Pulse Rate 62 55 L Pulse Rate [Apical] Pulse Rate from SpO2 Sensor Respiratory Rate 19 21 Blood Pressure 144/99 H Blood Pressure [Right Arm] Blood Pressure Mean 109 Blood Pressure Mean [Right Arm] Pulse Oximetry 97 96 Oxygen Delivery Method Oxygen Flow Rate Sepsis Recent Fever Within 48 Hours Sepsis New/Unexplained Change in Mental Status Sepsis Action Taken by Nursing 09/04/25 18:15 09/04/25 18:15 09/04/25 18:21 Temperature Temperature Source Pulse Rate 59 L 63 Pulse Rate [Apical] Pulse Rate from SpO2 Sensor 61 Respiratory Rate 22 21 Blood Pressure 128/78 128/78 Blood Pressure [Right Arm] Blood Pressure Mean 104 94 Blood Pressure Mean [Right Arm] Pulse Oximetry 94 96 Oxygen Delivery Method Room Air Oxygen Flow Rate Sepsis Recent Fever Within 48 Hours Sepsis New/Unexplained Change in Mental Status Sepsis Action Taken by Nursing 09/04/25 18:33 09/04/25 18:42 09/04/25 18:49 Temperature Temperature Source Pulse Rate 72 61 Pulse Rate [Apical] 60 Pulse Rate from SpO2 Sensor 51 L Respiratory Rate 23 24 21 Blood Pressure 142/83 H 116/71 Blood Pressure [Right Arm] 127/88 Blood Pressure Mean 102 86 Blood Pressure Mean [Right Arm] 101 Pulse Oximetry 97 99 98 Oxygen Delivery Method Room Air Room Air Room Air Oxygen Flow Rate Sepsis Recent Fever Within 48 Hours Sepsis New/Unexplained Change in Mental Status Sepsis Action Taken by Nursing 09/04/25 19:17 09/04/25 19:18 Temperature Temperature Source Pulse Rate Pulse Rate [Apical] 48 L 48 L Pulse Rate from SpO2 Sensor Respiratory Rate 21 21 Blood Pressure Blood Pressure [Right Arm] 137/82 137/82 Blood Pressure Mean Blood Pressure Mean [Right Arm] 100 100 Pulse Oximetry 99 100 Oxygen Delivery Method Nasal Cannula Nasal Cannula Oxygen Flow Rate 3 3 Sepsis Recent Fever Within 48 Hours Sepsis New/Unexplained Change in Mental Status Sepsis Action Taken by Nursing See below Constitutional WD/WN, vitals as above Eyes PERRL, conjunctivae normal, anicteric sclerae Neck trachea midline, no thyromegaly Respiratory normal respiratory effort, lungs clear to auscultation Cardiovascular RRR, no murmur, no edema Gastrointestinal (Abdomen) normal bowel sounds, soft, nontender, no hepatosplenomegaly Skin no rashes, warm and dry Neurologic Mild flattening of the right nasolabial fold, remaining cranial nerves II through XII are intact, no visual field cuts noted, 5 out of 5 strength in the upper and lower extremities bilaterally, no sensation deficits noted to the large dermatomes of the face or extremities, no dysmetria noted in all 4 limbs, mild dysarthria, no aphasia noted, no evidence of neglect, NIHSS of 2 Course Administered Medications Discontinued Medications Ioversol (Optiray 320 125ml) 120 ml IV ONCE ONE Stop: 09/04/25 17:31 Last Admin: 09/04/25 17:30 Dose: 120 ml Documented By: JOEL Medical Decision Making Differential Diagnosis DDx includes but not limited to: CVA, TIA, intracranial hemorrhage, atypical migraine, temporal arteritis Medical Records Attestation: I reviewed the patient's medical records. Home Medications Current Medication List: was personally reviewed by me Laboratory Data Attestation: I reviewed the patient's lab results. 09/04/25 17:36 09/04/25 17:36 Lab Results 09/04/25 09/04/25 09/04/25 Range/Units 17:36 17:43 17:49 WBC 5.87 (4.8-10.8) K/ul RBC 4.35 (4.20-5.40) M/uL Hgb 12.9 (12.0-16.0) g/dL POC Hgb 11.9 L (12.0-16.0) g/dl Hct 37.6 (37.0-47.0) % POC Hct 35 L (37-47) % MCV 86.4 (80.0-100.0) fL MCH 29.7 (25.0-34.0) pg MCHC 34.3 (32.0-36.0) g/dL RDW Std Deviation 40.5 (36.4-46.3) fL RDW Coeff of Mayda 12.8 (11.5-14.5) % Plt Count 142 (130-400) K/uL MPV 12.6 H (9.4-12.4) fL Immature Gran % (Auto) 0.2 % Neut % (Auto) 68.5 % Lymph % (Auto) 20.4 % Stone % (Auto) 7.3 % Eos % (Auto) 2.6 % Baso % (Auto) 1.0 % Neut # (Auto) 4.02 (1.40-6.50) K/uL Lymph # (Auto) 1.20 (1.20-3.40) K/uL Stone # (Auto) 0.43 (0.11-0.59) K/uL Eos # (Auto) 0.15 (0.00-0.50) K/uL Baso # (Auto) 0.06 (0.00-0.20) K/uL Immature Gran # (Auto) 0.01 (0.01-0.20) K/uL PT 10.8 (9.0-12.0) Seconds INR 1.0 (0.9-1.1) APTT 25 (21-31) Seconds PTT Ratio 0.9 POC Sodium 138 (135-144) mmol/L Sodium 136 (136-145) mmol/L POC Potassium 4.2 (3.3-5.0) mmol/L Potassium 4.1 (3.5-5.1) mmol/L POC Chloride 103 (101-112) mmol/L Chloride 105 (98-107) mmol/L Carbon Dioxide 26 (21-32) mmol/L POC Total CO2 25 (24-31) mmol/L Anion Gap 5 (3-11) POC Anion Gap 16.0 (16-25) mmol/L POC BUN 23 H (7-18) mg/dl BUN 22 (6-23) mg/dl Creatinine 0.99 (0.6-1.2) mg/dl POC Creatinine 1.2 (0.6-1.3) mg/dl Est Cr Clr Drug Dosing 38.3 ml/min eGFR 55.19 BUN/Creatinine Ratio 22.2 H (10-20) Glucose 101 H (70-99(Fasting)) mg/dl POC Glucose 105 H (70-99) mg/dl POC Glucose (other) 96 (70-99) mg/dl Calcium 8.5 L (8.6-10.3) mg/dl POC Ioniz Calcium Ernie 1.15 (1.12-1.32) mmol/l Magnesium 2.2 (1.7-2.4) mg/dl Total Bilirubin 0.5 (0.2-1.0) mg/dl AST 15 (13-39) U/L ALT 9 (7-52) U/L Alkaline Phosphatase 49 (34-104) U/L Troponin I High Sens < 2.3 (0-14) pg/ml Total Protein 5.7 L (6.0-8.3) gm/dl Albumin 3.5 (3.4-5.0) gm/dl Globulin 2.2 L (2.5-4.0) gm/dl Albumin/Globulin Ratio 1.6 (0.9-2) Blood Type B Positive Antibody Screen NEGATIVE Imaging Data Radiologist's Impression: Head CT 09/04/25 17:[address] without contrast CT angiogram of the neck CT angiogram of the brain with contrast Provided History: Neuro deficit Comparison: None Technique: HEAD CT: Using multidetector thin collimation helical acquisition technique, axial, coronal and sagittal CT images from the skull base to the vertex were obtained without intravenous contrast. HEAD and NECK CTA: During rapid bolus intravenous injection of nonionic contrast material, axial images were obtained using thin collimation multidetector helical technique from the base of the neck through the of vertex of the head. This CT angiogram data was reconstructed at thin intervals with mild overlap. 3D reconstructions were obtained. The axial source images, multiplanar reformations, 3D reconstructions in both maximum intensity projection display and volume rendered models were reviewed. Dose reduction techniques were achieved by using automatic exposure control and/or adjustment of mA and/or kV according to patient size and/or use of iterative reconstruction technique. Findings: Head CT: There is no intracranial hemorrhage, mass effect, or midline shift. Small chronic left frontal lobe infarct, otherwise the remaining robbins/white matter differentiation in both cerebral hemispheres is preserved. Ventricles are proportionate to the cerebral sulci. Head CTA demonstrates no aneurysm or stenosis of the major intracranial arteries. Neck CTA demonstrates no stenosis of the major cervical arteries. Mild calcifications at the right carotid bulb. The origins of the great vessels from the aortic arch are patent. No mass is noted within the visualized portions of the cervical soft tissues or lung apices. Impression: 1. Head CTA demonstrates no aneurysm or stenosis of the major intracranial arteries, 2. Neck CTA demonstrates no stenosis of the major cervical arteries. 3. No intracranial hemorrhage on the noncontrast head CT. Electronically signed by Cesar Davis 09-04-2025 5:49 PM Head CTA 09/04/25 17:[address] without contrast CT angiogram of the neck CT angiogram of the brain with contrast Provided History: Neuro deficit Comparison: None Technique: HEAD CT: Using multidetector thin collimation helical acquisition technique, axial, coronal and sagittal CT images from the skull base to the vertex were obtained without intravenous contrast. HEAD and NECK CTA: During rapid bolus intravenous injection of nonionic contrast material, axial images were obtained using thin collimation multidetector helical technique from the base of the neck through the of vertex of the head. This CT angiogram data was reconstructed at thin intervals with mild overlap. 3D reconstructions were obtained. The axial source images, multiplanar reformations, 3D reconstructions in both maximum intensity projection display and volume rendered models were reviewed. Dose reduction techniques were achieved by using automatic exposure control and/or adjustment of mA and/or kV according to patient size and/or use of iterative reconstruction technique. Findings: Head CT: There is no intracranial hemorrhage, mass effect, or midline shift. Small chronic left frontal lobe infarct, otherwise the remaining robbins/white matter differentiation in both cerebral hemispheres is preserved. Ventricles are proportionate to the cerebral sulci. Head CTA demonstrates no aneurysm or stenosis of the major intracranial arteries. Neck CTA demonstrates no stenosis of the major cervical arteries. Mild calcifications at the right carotid bulb. The origins of the great vessels from the aortic arch are patent. No mass is noted within the visualized portions of the cervical soft tissues or lung apices. Impression: 1. Head CTA demonstrates no aneurysm or stenosis of the major intracranial arteries, 2. Neck CTA demonstrates no stenosis of the major cervical arteries. 3. No intracranial hemorrhage on the noncontrast head CT. Electronically signed by Cesar Davis 09-04-2025 5:49 PM Neck CTA 09/04/25 17:[address] without contrast CT angiogram of the neck CT angiogram of the brain with contrast Provided History: Neuro deficit Comparison: None Technique: HEAD CT: Using multidetector thin collimation helical acquisition technique, axial, coronal and sagittal CT images from the skull base to the vertex were obtained without intravenous contrast. HEAD and NECK CTA: During rapid bolus intravenous injection of nonionic contrast material, axial images were obtained using thin collimation multidetector helical technique from the base of the neck through the of vertex of the head. This CT angiogram data was reconstructed at thin intervals with mild overlap. 3D reconstructions were obtained. The axial source images, multiplanar reformations, 3D reconstructions in both maximum intensity projection display and volume rendered models were reviewed. Dose reduction techniques were achieved by using automatic exposure control and/or adjustment of mA and/or kV according to patient size and/or use of iterative reconstruction technique. Findings: Head CT: There is no intracranial hemorrhage, mass effect, or midline shift. Small chronic left frontal lobe infarct, otherwise the remaining robbins/white matter differentiation in both cerebral hemispheres is preserved. Ventricles are proportionate to the cerebral sulci. Head CTA demonstrates no aneurysm or stenosis of the major intracranial arteries. Neck CTA demonstrates no stenosis of the major cervical arteries. Mild calcifications at the right carotid bulb. The origins of the great vessels from the aortic arch are patent. No mass is noted within the visualized portions of the cervical soft tissues or lung apices. Impression: 1. Head CTA demonstrates no aneurysm or stenosis of the major intracranial arteries, 2. Neck CTA demonstrates no stenosis of the major cervical arteries. 3. No intracranial hemorrhage on the noncontrast head CT. Electronically signed by Cesar Davis 09-04-2025 5:49 PM ECG Data Attestation: I personally reviewed and interpreted this ECG as follows: Indication: + weakness Rate (beats per minute): 58 Rhythm: + sinus bradycardia (with sinus arrhythmia ) ECG Intervals/blocks: + Normal QRS, + Normal QT and + Normal TN ECG [place]: + Normal ECG ST segments: + Normal ST segments Comparison ECG Date: from (08/09/2025) Change: the following changes noted (Limb lead reversal is no longer present ) MDM Narrative Patient is an 85-year-old female with history of prior cerebellar CVA who presents for blurry vision, slurred speech, facial droop that started at 1:30 AM. A stroke alert was called after my initial evaluation of the patient. NIH stroke scale of 2. Outside the window for TNK. CT head as well as CTA nonconcerning for acute findings specifically no large vessel occlusion noted. Discussed the case with teleneurology at [place] who recommends admission and continue DAPT. Of note patient was noted to have a run of atrial fibrillation versus flutter per EMS and I reviewed their rhythm strip. A-fib resolved however will likely need additional anticoagulation upon discharge. Patient will be admitted for CVA workup to the hospitalist service. Impression & Plan Cerebrovascular accident Discharge Plan Visit Data Chief Complaint: Stroke/CVA Symptoms Stated Complaint: Stroke symptoms ED Provider: Ney Rivera Discharge Problem: Cerebrovascular accident Patient Disposition: Admitted As Inpatient Condition: Good Forms Stand Alone Forms: My [facility] Prescriptions Prescriptions: No Action propranolol 60 mg capsule,extended release 24 hr 60 mg PO DAILY aspirin 81 mg Tablet,Delayed Release (Dr/Ec) 81 mg PO QAM hydrochlorothiazide 25 mg tablet 25 mg PO DAILY clopidogrel 75 mg tablet 75 mg PO DAILY Potassium Chelated 99 mg Tablet 99 mg PO DAILY cholecalciferol (vitamin D3) [Vitamin D3] 25 mcg (1,000 unit) Tablet 25 mcg PO DAILY calcium carbonate-vit D3-min 1,200 mgcalcium -1,000 unit Tablet,Chewable 1 tab PO DAILY Referrals Referrals: Stacy Plascencia PA-C [Primary Care Provider] -
--- NOTE | 2025-09-04 17:50 | CT Scan Report ---
Head CT without contrast CT angiogram of the neck CT angiogram of the brain with contrast Provided History: Neuro deficit Comparison: None Technique: HEAD CT: Using multidetector thin collimation helical acquisition technique, axial, coronal and sagittal CT images from the skull base to the vertex were obtained without intravenous contrast. HEAD and NECK CTA: During rapid bolus intravenous injection of nonionic contrast material, axial images were obtained using thin collimation multidetector helical technique from the base of the neck through the of vertex of the head. This CT angiogram data was reconstructed at thin intervals with mild overlap. 3D reconstructions were obtained. The axial source images, multiplanar reformations, 3D reconstructions in both maximum intensity projection display and volume rendered models were reviewed. Dose reduction techniques were achieved by using automatic exposure control and/or adjustment of mA and/or kV according to patient size and/or use of iterative reconstruction technique. Findings: Head CT: There is no intracranial hemorrhage, mass effect, or midline shift. Small chronic left frontal lobe infarct, otherwise the remaining robbins/white matter differentiation in both cerebral hemispheres is preserved. Ventricles are proportionate to the cerebral sulci. Head CTA demonstrates no aneurysm or stenosis of the major intracranial arteries. Neck CTA demonstrates no stenosis of the major cervical arteries. Mild calcifications at the right carotid bulb. The origins of the great vessels from the aortic arch are patent. No mass is noted within the visualized portions of the cervical soft tissues or lung apices. Impression: 1. Head CTA demonstrates no aneurysm or stenosis of the major intracranial arteries, 2. Neck CTA demonstrates no stenosis of the major cervical arteries. 3. No intracranial hemorrhage on the noncontrast head CT. Electronically signed by Cesar Davis 09-04-2025 5:49 PM
[2025-09-04 18:03] LABS: Hematocrit (blood only) 37.6 % (37.0-47.0); Hemoglobin 12.9 g/dL (12.0-16.0); Immature Granulocytes # (auto) 0.01 K/uL (0.01-0.20); Immature Granulocytes % (auto) 0.2 %; Mean Corpuscular Hemoglobin 29.7 pg (25.0-34.0); Mean Corpuscular Volume 86.4 fL (80.0-100.0); Platelet Count 142 K/uL (130-400); RDW Standard Deviation 40.5 fL (36.4-46.3); Red Blood Count 4.35 M/uL (4.20-5.40); White Blood Count 5.87 K/ul (4.8-10.8)
[2025-09-04 18:22] LABS: Alanine Aminotransferase 9 U/L (7-52); Albumin Globulin Ratio 1.6 (0.9-2); Albumin Level 3.5 gm/dl (3.4-5.0); Alkaline Phosphatase 49 U/L (34-104); Anion Gap 5 (3-11); Bilirubin,Total 0.5 mg/dl (0.2-1.0); Blood Urea Nitrogen 22 mg/dl (6-23); Calcium 8.5 mg/dl (8.6-10.3); Carbon Dioxide 26 mmol/L (21-32); Chloride 105 mmol/L (98-107); Creatinine Clr Calc Pharmacy 38.3 ml/min; Globulin 2.2 gm/dl (2.5-4.0); Glucose 101 mg/dl (70-99(Fasting)); Magnesium 2.2 mg/dl (1.7-2.4); Potassium 4.1 mmol/L (3.5-5.1); Sodium 136 mmol/L (136-145); Total Protein 5.7 gm/dl (6.0-8.3)
[2025-09-04 18:40] LABS: INR 1.0 (0.9-1.1); Partial Thromboplastin Time 25 Seconds (21-31); Prothrombin Time 10.8 Seconds (9.0-12.0)
--- NOTE | 2025-09-04 20:35 | History & Physical Report ---
Date of Service September 04, 2025 Assessment & Plan (1) Stroke-like symptoms: (2) History of stroke: (3) Atrial flutter: (4) Sinus bradycardia: Plan The patient is a 85-year-old female with a past medical history including cerebellar stroke, internuclear abdominal plegia, hypertension, and vitamin D deficiency. She presents to the emergency department with acute onset of slurred speech, and right facial droop that began around 3:00 in the afternoon of 09/04. Family called EMS, who noted the patient's symptoms. They report that en route the patient had a run of atrial flutter. Her symptoms have gradually improved, and patient family reports in the ED that her speech is still somewhat slurred, however, she otherwise appears to be normalizing. Patient was evaluated as a stroke alert, and recommendation by telestroke was no TNK, and no heparin. While in the emergency department, patient was noted to have several episodes of bradycardia, with heart rate into the upper 30s and lower 40s. Strokelike symptoms-/history of right cerebellar stroke 08-08-2024- Patient was admitted from 08/08-08/11/2024 with strokelike symptoms, and had the addition of clopidogrel at that time. She has continued to take aspirin and clopidogrel as directed. She developed the acute onset of slurred speech and right facial droop at 3:00 in the afternoon, and was brought to the emergency department via EMS. CT scan of head, CTA head and neck were all negative for acute findings. MRI brain is ordered. The patient will be admitted to telemetry for serial cardiac enzymes, serial EKG's, cardiac rhythm monitoring and a 2-D echocardiogram with Dopplers. Most recent echocardiogram from 08/09/24 revealed ejection fraction of 60-65%, and interatrial shunt was noted. Continue aspirin, clopidogrel. Hold HCTZ, and propranolol to allow for permissive hypertension LR at 80 mL/h x 1 L Stroke without thrombolytic order set Consult PT/OT/speech Cardiac arrhythmia- Patient was noted to have paroxysmal atrial flutter en route via EMS. Patient appeared to have episodes while in the emergency department, however, patient does also have a resting tremor. Bradycardia with heart rates into the upper 30s to lower 40s was noted in the ED. For this we will hold propranolol. The patient will be admitted to telemetry for serial cardiac enzymes, serial EKG's, cardiac rhythm monitoring and a 2-D echocardiogram with Dopplers. Consult cardiology History of Present Illness Primary Care Provider: Stacy Plascencia The patient is a 85-year-old female with a past medical history including cerebellar stroke, internuclear abdominal plegia, hypertension, and vitamin D deficiency. She presents to the emergency department with acute onset of slurred speech, and right facial droop that began around 3:00 in the afternoon of 09/04. Family called EMS, who noted the patient's symptoms. They report that en route the patient had a run of atrial flutter. Her symptoms have gradually improved, and patient family reports in the ED that her speech is still somewhat slurred, however, she otherwise appears to be normalizing. Patient was evaluated as a stroke alert, and recommendation by telestroke was no TNK, and no heparin. While in the emergency department, patient was noted to have several episodes of bradycardia, with heart rate into the upper 30s and lower 40s. Allergies Allergy/AdvReac Type Severity Reaction Status Date / Time No Known Allergies Allergy Unverified 08/08/24 17:54 Home Medications Medication Instructions Recorded Confirmed Type aspirin 81 mg tablet,delayed 81 mg PO QAM 08/08/24 09/04/25 History release hydrochlorothiazide 25 mg tablet 25 mg PO DAILY 08/08/24 09/04/25 History propranolol 60 mg capsule,24 60 mg PO DAILY 08/08/24 09/04/25 History hr,extended release calcium carb 1,200 mg-vit D3 1,000 1 tab PO DAILY 09/04/25 09/04/25 History unit-minerals chewable tablet cholecalciferol (vitamin D3) 25 25 mcg PO DAILY 09/04/25 09/04/25 History mcg (1,000 unit) tablet (Vitamin D3) clopidogrel 75 mg tablet 75 mg PO DAILY 09/04/25 09/04/25 History potassium 99 mg tablet 99 mg PO DAILY 09/04/25 09/04/25 History Past Med/Surg History Problem List (Updated 09/05/25 @ 03:45 by Tong Adkins MD) Sinus bradycardia Atrial flutter Cerebrovascular accident (Acute) Cerebellar stroke VAL (internuclear ophthalmoplegia) (Acute) Medical History (Updated 09/05/25 @ 03:45 by Tong Adkins MD) Chronic arterial ischemic stroke Stroke-like symptoms Irritable bowel syndrome GERD (gastroesophageal reflux disease) History of breast cancer 2013 Right - s/p lumpectomy and raditation Hypertension History of stroke No residual deficits Surgical History (Updated 08/08/24 @ 19:38 by Ruddy Garcia MD) History of lumpectomy of right breast Social History Smoking Status: Never smoker Hx Alcohol Use: No Hx Substance Use: No Preferred Language: Lebanese Communication Ability: Impaired Communication Ability Comment: d/t tremors in R hand Neck Fitter Required: No Beliefs That Will Affect Care: None Current Living Situation: Family Current Living Situation Comment: with son Other Information That Helps Us Care for You: No Feels Safe at Home: Yes Safety Concerns: Feels Safe At This Time Assistive Devices: Glasses Review of Systems Review of Systems: The patient denies chest pain, palpitations, shortness of breath, dyspnea on exertion, cough, lower extremity swelling, sore throat, fevers, chills, sweats, nausea, vomiting, diarrhea , constipation, abdominal pain, pelvic pain, blood in urine or stool, dysuria, lightheadedness, dizziness, headache, loss of consciousness, rash, abnormal bruising or bleeding, Focal weakness, numbness or tingling in arms or legs, generalized arthralgias or myalgias, back or neck pain, or night sweats. The review of systems is otherwise negative other than for that already noted above, and at least 10 systems have been reviewed. Physical Exam Physical Exam: The patient is awake, alert and oriented 3, normocephalic and atraumatic, lying in bed and in no acute distress. HEENT--PERRL, EOMI, mucous membranes and oropharynx mildly dry. Neck--supple. No JVD. No bruits. Thyroid normal, trachea midline, no adenopathy. Heart--normal S1 and S2. No murmurs, rubs or gallops. Lungs--clear bilaterally, no respiratory distress, no accessory muscle use. Abdomen--normal bowel sounds and soft. Nontender. Nondistended, no hernias or masses, no organomegaly. Extremities--no cyanosis or clubbing. No edema. Dermatologic--normal skin turgor, normal color, no abnormal lymph nodes, no rash. Neurologic--cranial nerves II through XII grossly intact. Rheumatologic--normal range of motion. Psychiatric--normal affect. Results & Data Results & Data Vital Signs (Past 12 Hours) Vital Signs Temp Pulse Pulse Resp BP BP Pulse Ox 09/04/25 19:18 48 L 21 137/82 100 09/04/25 19:17 48 L 21 137/82 99 09/04/25 18:49 60 21 127/88 98 09/04/25 18:42 61 24 116/71 99 09/04/25 18:33 72 23 142/83 H 97 09/04/25 18:21 63 21 128/78 96 09/04/25 18:15 128/78 09/04/25 18:15 59 L 22 94 09/04/25 18:12 55 L 21 96 09/04/25 18:00 62 19 97 09/04/25 18:00 144/99 H 09/04/25 18:00 144/99 H 09/04/25 18:00 144/99 H 09/04/25 18:00 144/99 H 09/04/25 18:00 144/99 H 09/04/25 17:51 58 L 25 H 99 09/04/25 17:49 138/71 09/04/25 17:49 138/71 09/04/25 17:49 138/71 09/04/25 17:49 138/71 09/04/25 17:49 138/71 09/04/25 17:48 52 L 25 H 99 09/04/25 17:45 62 09/04/25 17:42 62 24 09/04/25 17:25 96 09/04/25 17:25 36.7 C 71 20 138/74 98 O2 Del Method O2 Flow Rate 09/04/25 19:18 Nasal Cannula 3 09/04/25 19:17 Nasal Cannula 3 09/04/25 18:49 Room Air 09/04/25 18:42 Room Air 09/04/25 18:33 Room Air 09/04/25 18:21 Room Air 09/04/25 18:15 09/04/25 18:15 09/04/25 18:12 09/04/25 18:00 09/04/25 18:00 09/04/25 18:00 09/04/25 18:00 09/04/25 18:00 09/04/25 18:00 09/04/25 17:51 09/04/25 17:49 09/04/25 17:49 09/04/25 17:49 09/04/25 17:49 09/04/25 17:49 09/04/25 17:48 09/04/25 17:45 09/04/25 17:42 09/04/25 17:25 Room Air 09/04/25 17:25 Nasal Cannula Laboratory Results Laboratory Results WBC 5.87 K/ul (4.8-10.8) 09/04/25 17:36 RBC 4.35 M/uL (4.20-5.40) 09/04/25 17:36 Hgb 12.9 g/dL (12.0-16.0) 09/04/25 17:36 POC Hgb 11.9 g/dl (12.0-16.0) L 09/04/25 17:49 Hct 37.6 % (37.0-47.0) 09/04/25 17:36 POC Hct 35 % (37-47) L 09/04/25 17:49 MCV 86.4 fL (80.0-100.0) 09/04/25 17:36 MCH 29.7 pg (25.0-34.0) 09/04/25 17:36 MCHC 34.3 g/dL (32.0-36.0) 09/04/25 17:36 RDW Std Deviation 40.5 fL (36.4-46.3) 09/04/25 17:36 RDW Coeff of Mayda 12.8 % (11.5-14.5) 09/04/25 17:36 Plt Count 142 K/uL (130-400) 09/04/25 17:36 MPV 12.6 fL (9.4-12.4) H 09/04/25 17:36 Immature Gran % (Auto) 0.2 % 09/04/25 17:36 Neut % (Auto) 68.5 % 09/04/25 17:36 Lymph % (Auto) 20.4 % 09/04/25 17:36 White % (Auto) 7.3 % 09/04/25 17:36 Eos % (Auto) 2.6 % 09/04/25 17:36 Baso % (Auto) 1.0 % 09/04/25 17:36 Neut # (Auto) 4.02 K/uL (1.40-6.50) 09/04/25 17:36 Lymph # (Auto) 1.20 K/uL (1.20-3.40) 09/04/25 17:36 White # (Auto) 0.43 K/uL (0.11-0.59) 09/04/25 17:36 Eos # (Auto) 0.15 K/uL (0.00-0.50) 09/04/25 17:36 Baso # (Auto) 0.06 K/uL (0.00-0.20) 09/04/25 17:36 Immature Gran # (Auto) 0.01 K/uL (0.01-0.20) 09/04/25 17:36 PT 10.8 Seconds (9.0-12.0) 09/04/25 17:36 INR 1.0 (0.9-1.1) 09/04/25 17:36 APTT 25 Seconds (21-31) 09/04/25 17:36 PTT Ratio 0.9 09/04/25 17:36 POC Sodium 138 mmol/L (135-144) 09/04/25 17:49 Sodium 136 mmol/L (136-145) 09/04/25 17:36 POC Potassium 4.2 mmol/L (3.3-5.0) 09/04/25 17:49 Potassium 4.1 mmol/L (3.5-5.1) 09/04/25 17:36 POC Chloride 103 mmol/L (101-112) 09/04/25 17:49 Chloride 105 mmol/L (98-107) 09/04/25 17:36 Carbon Dioxide 26 mmol/L (21-32) 09/04/25 17:36 POC Total CO2 25 mmol/L (24-31) 09/04/25 17:49 Anion Gap 5 (3-11) 09/04/25 17:36 POC Anion Gap 16.0 mmol/L (16-25) 09/04/25 17:49 POC BUN 23 mg/dl (7-18) H 09/04/25 17:49 BUN 22 mg/dl (6-23) 09/04/25 17:36 Creatinine 0.99 mg/dl (0.6-1.2) 09/04/25 17:36 POC Creatinine 1.2 mg/dl (0.6-1.3) 09/04/25 17:49 Est Cr Clr Drug Dosing 38.3 ml/min 09/04/25 17:36 eGFR 55.19 09/04/25 17:36 BUN/Creatinine Ratio 22.2 (10-20) H 09/04/25 17:36 Glucose 101 mg/dl (70-99(Fasting)) H 09/04/25 17:36 POC Glucose 105 mg/dl (70-99) H 09/04/25 17:43 POC Glucose (other) 96 mg/dl (70-99) 09/04/25 17:49 Calcium 8.5 mg/dl (8.6-10.3) L 09/04/25 17:36 POC Ioniz Calcium Ernie 1.15 mmol/l (1.12-1.32) 09/04/25 17:49 Magnesium 2.2 mg/dl (1.7-2.4) 09/04/25 17:36 Total Bilirubin 0.5 mg/dl (0.2-1.0) 09/04/25 17:36 AST 15 U/L (13-39) 09/04/25 17:36 ALT 9 U/L (7-52) 09/04/25 17:36 Alkaline Phosphatase 49 U/L (34-104) 09/04/25 17:36 Troponin I High Sens < 2.3 pg/ml (0-14) 09/04/25 17:36 Total Protein 5.7 gm/dl (6.0-8.3) L 09/04/25 17:36 Albumin 3.5 gm/dl (3.4-5.0) 09/04/25 17:36 Globulin 2.2 gm/dl (2.5-4.0) L 09/04/25 17:36 Albumin/Globulin Ratio 1.6 (0.9-2) 09/04/25 17:36 Blood Type B Positive 09/04/25 17:36 Antibody Screen NEGATIVE 09/04/25 17:[address] 09/04/25 17:[address] without contrast CT angiogram of the neck CT angiogram of the brain with contrast Provided History: Neuro deficit Comparison: None Technique: HEAD CT: Using multidetector thin collimation helical acquisition technique, axial, coronal and sagittal CT images from the skull base to the vertex were obtained without intravenous contrast. HEAD and NECK CTA: During rapid bolus intravenous injection of nonionic contrast material, axial images were obtained using thin collimation multidetector helical technique from the base of the neck through the of vertex of the head. This CT angiogram data was reconstructed at thin intervals with mild overlap. 3D reconstructions were obtained. The axial source images, multiplanar reformations, 3D reconstructions in both maximum intensity projection display and volume rendered models were reviewed. Dose reduction techniques were achieved by using automatic exposure control and/or adjustment of mA and/or kV according to patient size and/or use of iterative reconstruction technique. Findings: Head CT: There is no intracranial hemorrhage, mass effect, or midline shift. Small chronic left frontal lobe infarct, otherwise the remaining robbins/white matter differentiation in both cerebral hemispheres is preserved. Ventricles are proportionate to the cerebral sulci. Head CTA demonstrates no aneurysm or stenosis of the major intracranial arteries. Neck CTA demonstrates no stenosis of the major cervical arteries. Mild calcifications at the right carotid bulb. The origins of the great vessels from the aortic arch are patent. No mass is noted within the visualized portions of the cervical soft tissues or lung apices. Impression: 1. Head CTA demonstrates no aneurysm or stenosis of the major intracranial arteries, 2. Neck CTA demonstrates no stenosis of the major cervical arteries. 3. No intracranial hemorrhage on the noncontrast head CT. Electronically signed by Cesar Davis 09-04-2025 5:49 PM Head CTA 09/04/25 17:[address] without contrast CT angiogram of the neck CT angiogram of the brain with contrast Provided History: Neuro deficit Comparison: None Technique: HEAD CT: Using multidetector thin collimation helical acquisition technique, axial, coronal and sagittal CT images from the skull base to the vertex were obtained without intravenous contrast. HEAD and NECK CTA: During rapid bolus intravenous injection of nonionic contrast material, axial images were obtained using thin collimation multidetector helical technique from the base of the neck through the of vertex of the head. This CT angiogram data was reconstructed at thin intervals with mild overlap. 3D reconstructions were obtained. The axial source images, multiplanar reformations, 3D reconstructions in both maximum intensity projection display and volume rendered models were reviewed. Dose reduction techniques were achieved by using automatic exposure control and/or adjustment of mA and/or kV according to patient size and/or use of iterative reconstruction technique. Findings: Head CT: There is no intracranial hemorrhage, mass effect, or midline shift. Small chronic left frontal lobe infarct, otherwise the remaining robbins/white matter differentiation in both cerebral hemispheres is preserved. Ventricles are proportionate to the cerebral sulci. Head CTA demonstrates no aneurysm or stenosis of the major intracranial arteries. Neck CTA demonstrates no stenosis of the major cervical arteries. Mild calcifications at the right carotid bulb. The origins of the great vessels from the aortic arch are patent. No mass is noted within the visualized portions of the cervical soft tissues or lung apices. Impression: 1. Head CTA demonstrates no aneurysm or stenosis of the major intracranial arteries, 2. Neck CTA demonstrates no stenosis of the major cervical arteries. 3. No intracranial hemorrhage on the noncontrast head CT. Electronically signed by Cesar Davis 09-04-2025 5:49 PM Neck CTA 09/04/25 17:[address] without contrast CT angiogram of the neck CT angiogram of the brain with contrast Provided History: Neuro deficit Comparison: None Technique: HEAD CT: Using multidetector thin collimation helical acquisition technique, axial, coronal and sagittal CT images from the skull base to the vertex were obtained without intravenous contrast. HEAD and NECK CTA: During rapid bolus intravenous injection of nonionic contrast material, axial images were obtained using thin collimation multidetector helical technique from the base of the neck through the of vertex of the head. This CT angiogram data was reconstructed at thin intervals with mild overlap. 3D reconstructions were obtained. The axial source images, multiplanar reformations, 3D reconstructions in both maximum intensity projection display and volume rendered models were reviewed. Dose reduction techniques were achieved by using automatic exposure control and/or adjustment of mA and/or kV according to patient size and/or use of iterative reconstruction technique. Findings: Head CT: There is no intracranial hemorrhage, mass effect, or midline shift. Small chronic left frontal lobe infarct, otherwise the remaining robbins/white matter differentiation in both cerebral hemispheres is preserved. Ventricles are proportionate to the cerebral sulci. Head CTA demonstrates no aneurysm or stenosis of the major intracranial arteries. Neck CTA demonstrates no stenosis of the major cervical arteries. Mild calcifications at the right carotid bulb. The origins of the great vessels from the aortic arch are patent. No mass is noted within the visualized portions of the cervical soft tissues or lung apices. Impression: 1. Head CTA demonstrates no aneurysm or stenosis of the major intracranial arteries, 2. Neck CTA demonstrates no stenosis of the major cervical arteries. 3. No intracranial hemorrhage on the noncontrast head CT. Electronically signed by Cesar Davis 09-04-2025 5:49 PM Code Status & VTE Plan Code Status DNR/DNI VTE Prophylaxis Plan VTE Prophylaxis will be ordered: Yes PG Care Time/CCT Total # of Minutes Spent Total Time Spent with Patient: Total time spent is greater than 50% in coordination of care (as documented) at patient's floor/unit and/or counseling patient: Coding Level of Care Code 62696 INT INP/OBS CARE 3/75MIN Diagnoses Stroke-like symptoms R29.90 History of stroke Z86.73 Atrial flutter I48.92 Sinus bradycardia R00.1
[2025-09-04] MEDS: LACTATED RINGER'S 1,000 ML IV SCH (20:41)
[2025-09-04] MEDS ORDERED: PHARMACIST DISCHARGE MED REC CONSULT PRN (22:50)
--- NOTE | 2025-09-05 04:12 | Magnetic Resonance Report ---
Exam(s): MRI HEAD Without Contrast EXAM: MR Head Without Intravenous Contrast CLINICAL HISTORY: Reason for exam: stroke-like symptoms. TECHNIQUE: Magnetic resonance images of the head/brain without intravenous contrast in multiple planes. COMPARISON: Prior brain MRI from August 08, [address] from the 2024. FINDINGS: Brain: There is a tiny focus of acute ischemic injury of the posterior margin of the previously infarcted left frontal lobe, without evidence of hemorrhagic transformation. There remote ischemic injuries of the cerebellum and left thalamus. Moderate nonspecific white matter changes. The flow voids at the base the brain are intact. Ventricles: Moderate ventriculomegaly. Bones/joints: Unremarkable. No acute fracture. Sinuses: Chronic ethmoid, left maxillary and right sphenoid sinusitis. No acute sinusitis. Mastoid air cells: Unremarkable as visualized. No mastoid effusion. Orbits: Bilateral lens replacements. IMPRESSION: There is a tiny acute ischemic injury at the left frontal lobe without evidence of hemorrhagic transformation. Electronically signed by: Bia Mike MD 09/05/25 04:11 AM
[2025-09-05 06:14] LABS: Hematocrit (blood only) 37.2 % (37.0-47.0); Hemoglobin 12.4 g/dL (12.0-16.0); Immature Granulocytes # (auto) 0.01 K/uL (0.01-0.20); Immature Granulocytes % (auto) 0.2 %; Mean Corpuscular Hemoglobin 28.6 pg (25.0-34.0); Mean Corpuscular Volume 85.7 fL (80.0-100.0); Platelet Count 130 K/uL (130-400); RDW Standard Deviation 40.7 fL (36.4-46.3); Red Blood Count 4.34 M/uL (4.20-5.40); White Blood Count 6.56 K/ul (4.8-10.8)
[2025-09-05 06:33] LABS: Alanine Aminotransferase 8.0 U/L (7-52); Albumin Globulin Ratio 1.5 (0.9-2); Albumin Level 3.2 gm/dl (3.4-5.0); Alkaline Phosphatase 44.0 U/L (34-104); Anion Gap 5.0 (3-11); Bilirubin,Total 0.5 mg/dl (0.2-1.0); Blood Urea Nitrogen 19.0 mg/dl (6-23); Calcium 8.5 mg/dl (8.6-10.3); Carbon Dioxide 25.0 mmol/L (21-32); Chloride 110.0 mmol/L (98-107); Cholesterol 165.0 mg/dl (0-200); Creatinine Clr Calc Pharmacy 42.6 ml/min; Globulin 2.2 gm/dl (2.5-4.0); Glucose 99.0 mg/dl (70-99(Fasting)); HDL Cholesterol 29.0 mg/dl; Magnesium 2.1 mg/dl (1.7-2.4); Potassium 4.1 mmol/L (3.5-5.1); Sodium 140.0 mmol/L (136-145); Total Protein 5.4 gm/dl (6.0-8.3); Triglycerides 319.0 mg/dl (0-150)
[2025-09-05 07:13] LABS: INR 1.0 (0.9-1.1); Partial Thromboplastin Time 26 Seconds (21-31); Prothrombin Time 10.5 Seconds (9.0-12.0)
[2025-09-05] MEDS: ACETAMINOPHEN 325 MG TAB PO PRN (07:42)
[2025-09-05 07:49] LABS: Hemoglobin A1C 5.7 % (4.5-5.6)
[2025-09-05] MEDS: PROPRANOLOL HCL 60 MG LA CAP PO SCH (08:48)
[2025-09-05] MEDS: CALCIUM 600MG + VIT D 400 IU TAB PO SCH (08:48)
[2025-09-05] MEDS: CLOPIDOGREL BISULFATE 75 MG TAB PO SCH (08:48)
[2025-09-05] MEDS: CHOLECALCIFEROL 25 MCG (1000 UNITS) TAB PO SCH (08:49)
[2025-09-05] MEDS: ASPIRIN 81 MG ECTAB PO SCH (08:49)
--- NOTE | 2025-09-05 09:06 | XCELERA ---
[id number]
--- NOTE | 2025-09-05 09:54 | Electrocardiogram Report ---
Test Reason : Blood Pressure : */* mmHG Vent. Rate : 58 BPM Atrial Rate : 58 BPM P-R Int : 146 ms QRS Dur : 68 ms QT Int : 424 ms P-R-T Axes : 55 -17 108 degrees QTcB Int : 416 ms Sinus bradycardia Premature atrial complexes Low voltage QRS Poor R wave progression, consider anterior VT vs. lead placement vs. LVH Abnormal ECG When compared with ECG of 09-Aug-2024 00:59, QRS axis Shifted right Questionable change in initial forces of Lateral leads Nonspecific T wave abnormality has replaced inverted T waves in Lateral leads QT has shortened Confirmed by Omer Egan ([id number]) on 09/05/2025 9:53:43 AM Referred By: REFERRED SELF Confirmed By: Omer Egan
--- NOTE | 2025-09-05 12:18 | Cardiology Consultation ---
Date of Consultation September 05, 2025 Assessment & Plan (1) Cerebrovascular accident: -Acute left frontal lobe injury. -Fortunately, her neurologic symptoms are improving. -Occurred on aspirin and Plavix (PFO identified, August 2024 CVA). -Atrial dysrhythmia as described below. (2) Atrial dysrhythmia: -Several sources within the medical record mention atrial fibrillation/flutter. -The EMT monitor strips are not available for review. -Telemetry has been benign thus far. -If atrial fibrillation/flutter identified, would start a DOAC in place of aspirin. -Continue Plavix. (3) Patent foramen ovale: -Identified at the time of his CVA, August 2024. -Has been maintained on aspirin and Plavix since that time. (4) Hypertension: -Adequate control on current regimen. History of Present Illness Attending Physician: Ariana Banda MD History of Present Illness Mrs. Max is an 85-year-old female admitted yesterday with acute neurologic symptoms. Apparently, atrial fibrillation was identified in the field by the EMS team. This consultation was ordered to assist in her cardiac management. 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 The patient was in her usual state of health until early yesterday afternoon when she had the acute onset of right eye "blurry vision," slurred speech, and a right-sided facial droop. The patient's family called 911. On arrival to her home, the EMS team apparently identified an episode of atrial fibrillation/flutter. Those rhythm strips are not available for review. On arrival here, a stroke alert was called. She does not qualify for thrombo lytic therapy. Fortunately, in a short period of time, her neurologic symptoms have improved. Brain MRI noted acute left frontal ischemic injury. Head CT and neck CTA were unremarkable. The patient did suffer a CVA back in August 2024. Her workup found a patent foramen ovale. Plavix was added to her aspirin and she was discharged home in stable fashion. Currently, patient is resting comfortably in bed without complaints. She feels that she is back to 90% of her usual self. Past medical and surgical history 1. Hypertension 2. Dyslipidemia 3. Patent foramen ovaleNovember 2023 4. CVANovember 2023 5. GERD 6. Essential tremor 7. Vitamin D deficiency 8. Right sided breast [id number], lumpectomy and XRT Social history Lives with her son and his family No tobacco or alcohol Family history Noncontributory Review of systems A 10 point review of system was undertaken and negative except that described above. Allergies Allergy/AdvReac Type Severity Reaction Status Date / Time No Known Allergies Allergy Unverified 08/08/24 17:54 Home Medications Medication Instructions Recorded Confirmed Type aspirin 81 mg tablet,delayed 81 mg PO QAM 08/08/24 09/04/25 History release hydrochlorothiazide 25 mg tablet 25 mg PO DAILY 08/08/24 09/04/25 History propranolol 60 mg capsule,24 60 mg PO DAILY 08/08/24 09/04/25 History hr,extended release calcium carb 1,200 mg-vit D3 1,000 1 tab PO DAILY 09/04/25 09/04/25 History unit-minerals chewable tablet cholecalciferol (vitamin D3) 25 25 mcg PO DAILY 09/04/25 09/04/25 History mcg (1,000 unit) tablet (Vitamin D3) clopidogrel 75 mg tablet 75 mg PO DAILY 09/04/25 09/04/25 History potassium 99 mg tablet 99 mg PO DAILY 09/04/25 09/04/25 History Patient History Medical History (Updated 09/05/25 @ 12:13 by Omer Egan MD) Chronic arterial ischemic stroke Stroke-like symptoms Irritable bowel syndrome GERD (gastroesophageal reflux disease) History of breast cancer 2012 Right - s/p lumpectomy and raditation Hypertension History of stroke No residual deficits Surgical History (Updated 08/08/24 @ 19:38 by Ruddy Garcia MD) History of lumpectomy of right breast Social History Smoking Status: Never smoker Hx Alcohol Use: No Hx Substance Use: No Preferred Language: French Communication Ability: Impaired Communication Ability Comment: d/t tremors in R hand Monument Carver Required: No Beliefs That Will Affect Care: None Current Living Situation: Family Current Living Situation Comment: with son Other Information That Helps Us Care for You: No Feels Safe at Home: Yes Safety Concerns: Feels Safe At This Time Assistive Devices: Glasses Physical Exam Physical Exam: In general this is a well-developed well-nourished white female in no acute distress. HEENT exam is negative. Neck reveals normal carotid upstrokes without bruits. Jugular venous pressure is flat at 90. There is no thyromegaly. Cardiovascular exam reveals a regular rhythm with distant heart sounds. No obvious murmurs. No S3. Lungs are clear without rales, rhonchi, or wheezes. Abdomen is soft without bruits. Extremities reveal intact radial artery and posterior tibial pulses bilaterally. There is no peripheral edema. Results & Data Vital Signs (Past 12 Hours) Vital Signs Temp Pulse Pulse Resp BP BP Pulse Ox 09/05/25 11:51 36.3 C L 52 L 23 119/68 98 09/05/25 08:07 36.2 C L 99 H 24 115/66 98 09/05/25 07:59 09/05/25 07:23 78 09/05/25 03:19 36.5 C 57 L 18 96/60 L 97 09/05/25 01:20 58 L O2 Del Method O2 Flow Rate 09/05/25 11:51 Nasal Cannula 2 09/05/25 08:07 Room Air 09/05/25 07:59 Nasal Cannula 2 09/05/25 07:23 09/05/25 03:19 Nasal Cannula 2 09/05/25 01:20 PG Care Time/CCT Total # of Minutes Spent Total Time Spent with Patient: Total time spent is greater than 50% in coordination of care (as documented) at patient's floor/unit and/or counseling patient: Coding Level of Care Code 35826 INT INP/OBS CARE 3/75MIN Diagnoses Cerebrovascular accident I63.9 Atrial dysrhythmia I49.8 Patent foramen ovale Q21.12 Primary hypertension I10 Hypertension type: primary hypertension (4) Hypertension Hypertension type: primary hypertension Qualified Code(s): I10 - Essential (primary) hypertension
--- NOTE | 2025-09-05 17:09 | Hospitalist Progress Note ---
Date of Service September 05, 2025 Assessment & Plan (1) Stroke-like symptoms: (2) History of stroke: (3) Atrial flutter: (4) Sinus bradycardia: Plan 85-year-old with history of stroke and PFO who is chronically on aspirin and Plavix admitted for acute ischemic stroke and possible new atrial flutter. # Acute ischemic stroke - small left frontal infarct identified on MRI correlates with her presenting symptoms - continue aspirin and Plavix for now. if atrial flutter identified should be changed to apixaban - LDL near goal may benefit from addition of statin - started atorvastatin - small stroke so okay to start normalizing blood pressure at this time - PT and OT recommended home with family assistance, she does live with her son in a ranch house with no stairs to enter and uses a walker at baseline # possible atrial flutter Overnight telemetry: atrial flutter, sinus bradycardia, heart rates in the 50s, no significant bradycardias. - Echocardiogram largely normal - Cardiology consult with Dr. Egan reviewed recs in his note - Received propranolol this morning, no severe bradycardias since ED -continue propranolol - will review with telemetry techs, if nothing identified she will need ambulatory cardiac monitoring # Prediabetes A1c 5.8, indicating prediabetes. - counseled dietary modifications and increased physical activity # DVT Prophylaxis: enoxaparin Medical Complexity: Medical decision making was complex, high risk for clinical deterioration morbidity, or mortality for this encounter. Admission and Anticipated Discharge Date Admission Date: September 04, 2025 Subjective 77-year-old female admitted with acute ischemic stroke and question of atrial flutter. Overnight telemetry showed atrial flutter and sinus bradycardia, heart rates in the 50s, no significant bradycardias. Brain MRI confirmed tiny left frontal lobe stroke, correlating with slurred speech and right facial weakness. CTA head/neck and head CT negative for acute findings, no LVO. Thrombolytics not indicated due to mild symptoms, duration, and absence of LVO. Echocardiogram: normal LV, normal EF, positive intra-arterial shunt. per the ED and admitting team she was in atrial flutter for the medics, and in the ED she was in atrial flutter questionably several times though she does have a chronic rest tremor of her right upper extremity which could affect the telemetry leads No further speech difficulty today. Speaking clearly, understanding well, no word-finding difficulty, no paraphasic errors, fluent speech with normal content. Slight right facial droop, no overt facial weakness. Right upper extremity strength 3+ to 4- out of 5 unclear whether truly weak or hampered by pain, chronic right hand tremor unchanged. Left upper extremity strength 5 out of 5. Right lower extremity strength virtually normal, subtle hip flexor weakness compared to left. No evidence of neglect. Physical Exam Physical Exam: General Appearance: Normal. Vital signs: Reviewed past 24h vital signs in EMR, unremarkable. HEENT: Within normal limits. Respiratory: Respirations nonlabored, no rhonchi rales or wheezes. Cardiovascular: Regular rate and rhythm, no murmur. Gastrointestinal: Abdomen soft NT/ND, normal active bowel tones. Extremities: warm and well perfused, no LE edema. Skin: Warm and dry, no rash. Neurological: Speaking clearly, understanding well, no word-finding difficulty, no paraphasic errors, fluent speech with normal content. Slight right facial droop, no overt facial weakness. Right upper extremity strength 3+ to 4- out of 5, chronic right hand tremor unchanged. Left upper extremity strength 5 out of 5. Right lower extremity strength virtually normal, subtle hip flexor weakness compared to left. No evidence of neglect. Psychiatric: Normal. Results & Data Results & Data Vital Signs (Past 12 Hours) Vital Signs Temp Pulse Pulse Resp BP BP Pulse Ox 09/05/25 16:19 36.5 C 74 23 106/72 95 09/05/25 15:12 56 L 09/05/25 11:51 36.3 C L 52 L 23 119/68 98 09/05/25 08:07 36.2 C L 99 H 24 115/66 98 09/05/25 07:59 09/05/25 07:23 78 O2 Del Method O2 Flow Rate 09/05/25 16:19 Room Air 09/05/25 15:12 09/05/25 11:51 Nasal Cannula 2 09/05/25 08:07 Room Air 09/05/25 07:59 Nasal Cannula 2 09/05/25 07:23 Diagnostic Findings - Labs: - A1c: 5.8 - LDL: 73 - Imaging: - Brain MRI: Tiny left frontal lobe stroke - CTA head/neck: Negative for acute findings, no LVO - Head CT: Negative for acute findings, no LVO - Echocardiogram: Normal LV, normal EF, positive intra-arterial shunt Care Time/CCT Total # of Minutes Spent Total Time Spent with Patient: Total time spent is greater than 50% in coordination of care (as documented) at patient's floor/unit and/or counseling patient: Coding Level of Care Code 78251 SUB INP/OBS CARE 3/50MIN Diagnoses Stroke-like symptoms R29.90 History of stroke Z86.73 Atrial flutter I48.92 Sinus bradycardia R00.1
--- NOTE | 2025-09-06 03:07 | Ultrasound Report ---
Exam(s): US VENOUS BILATERAL LOWER EXTREMITIES EXAM: US Duplex Bilateral Lower Extremities Veins CLINICAL HISTORY: Reason for exam: stroke, patent foramen ovale. TECHNIQUE: Real-time duplex ultrasound scan of the bilateral lower extremity veins integrating B-mode two-dimensional vascular structure, Doppler spectral analysis, color flow Doppler imaging and compression. COMPARISON: No relevant prior studies available. FINDINGS: Right deep veins: Unremarkable. No DVT in the right common femoral, femoral, proximal deep femoral or popliteal veins. The veins demonstrate normal color flow, are normally compressible, with normal phasic flow and/or augmentation response. Right superficial veins: Unremarkable. No thrombus in the visualized right great saphenous vein. Left deep veins: Unremarkable. No DVT in the left common femoral, femoral, proximal deep femoral or popliteal veins. The veins demonstrate normal color flow, are normally compressible, with normal phasic flow and/or augmentation response. Left superficial veins: Unremarkable. No thrombus in the visualized left great saphenous vein. Soft tissues: No acute findings. No popliteal cyst. IMPRESSION: Negative bilateral lower extremity duplex venous ultrasound. No evidence of DVT. Electronically signed by: Carlitos Hassan MD 09/06/25 03:06 AM
[2025-09-06 06:18] LABS: Hematocrit (blood only) 37.4 % (37.0-47.0); Hemoglobin 12.6 g/dL (12.0-16.0); Immature Granulocytes # (auto) 0.02 K/uL (0.01-0.20); Immature Granulocytes % (auto) 0.3 %; Mean Corpuscular Hemoglobin 28.8 pg (25.0-34.0); Mean Corpuscular Volume 85.6 fL (80.0-100.0); Platelet Count 134 K/uL (130-400); RDW Standard Deviation 41.0 fL (36.4-46.3); Red Blood Count 4.37 M/uL (4.20-5.40); White Blood Count 6.02 K/ul (4.8-10.8)
[2025-09-06 06:52] LABS: Alanine Aminotransferase 8.0 U/L (7-52); Albumin Globulin Ratio 1.5 (0.9-2); Albumin Level 3.5 gm/dl (3.4-5.0); Alkaline Phosphatase 43.0 U/L (34-104); Anion Gap 6.0 (3-11); Bilirubin,Total 0.8 mg/dl (0.2-1.0); Blood Urea Nitrogen 24.0 mg/dl (6-23); Calcium 9.0 mg/dl (8.6-10.3); Carbon Dioxide 25.0 mmol/L (21-32); Chloride 110.0 mmol/L (98-107); Creatinine Clr Calc Pharmacy 33.5 ml/min; Globulin 2.3 gm/dl (2.5-4.0); Glucose 97.0 mg/dl (70-99(Fasting)); Magnesium 2.3 mg/dl (1.7-2.4); Potassium 4.0 mmol/L (3.5-5.1); Sodium 141.0 mmol/L (136-145); Total Protein 5.8 gm/dl (6.0-8.3)
[2025-09-06 07:01] LABS: INR 1.0 (0.9-1.1); Partial Thromboplastin Time 26 Seconds (21-31); Prothrombin Time 10.5 Seconds (9.0-12.0)
[2025-09-06] MEDS: ROSUVASTATIN CALCIUM 5 MG TAB PO SCH (08:52)
[2025-09-06] MEDS ORDERED: ATORVASTATIN 40 MG TAB PO SCH (09:00)
[2025-09-06 12:14] VITALS: PULSE 54; RESP 18; TEMP 98.2; O2SAT 95
[2025-09-06] MEDS ORDERED: STROKE PATIENT DISCHARGE STA (12:34)
--- NOTE | 2025-09-06 12:38 | Discharge Summary ---
Discharge Summary Date of Service September 06, 2025 Principal Dx & Hospital Course #1 = Principal Diagnosis (1) Acute ischemic stroke: (2) Sinus bradycardia: (3) Patent foramen ovale: (4) Essential tremor: Plan 85-year-old with history of stroke and PFO who is chronically on aspirin and Plavix, admitted for acute ischemic stroke and there was concern for new atrial flutter based on monitor findings during EMS transport and ED telemetry # Acute ischemic stroke - small left frontal infarct identified on MRI correlates with her presenting symptoms of speech disturbance and right facial droop - CTA head and neck negative for intracranial stenoses - echocardiogram normal except for known PFO / positive bubble study - ordered lower extremity duplex, though at her age there is no compelling reason to think about cryptogenic stroke from PFO, rather, typical cerebrovascular disease is the likely culprit. Duplex was negative for DVT - continue aspirin and Plavix - LDL near goal but may benefit from addition of statin - started rosuvastatin 2.5 mg very low dose because of her elderly age, discussed possible side effects with her - small stroke so okay to have normal blood pressure at this time. resumed her propranolol. follow-up in primary care to see whether any additional medications should be started - PT and OT recommended home with family assistance, she does live with her son in a ranch house with no stairs to enter and uses a walker at baseline # possible atrial flutter which was ruled out - echocardiogram normal except for known PFO / positive bubble study - Cardiology consult with Dr. Egan - reviewed telemetry with [facility] and with Dr. Egan yesterday and today. what sometimes appears to be a flutter is artifact from her frequent right hand essential tremor, when leads are carefully examined there is always a lead which is clearly in sinus rhythm - continue propranolol - ordered ambulatory project manager retail. these at least have 3 leads so h opefully can distinguish tremor from atrial fibs/flutter # Prediabetes A1c slightly elevated at 5.8, indicating prediabetes. - counseled dietary modifications and increased physical activity # right shoulder pain - she fell on her right shoulder and has some ongoing soreness which is improving, was especially good after taking some acetaminophen and I instructed her on as needed use. I do not want her to develop frozen shoulder so I told her to schedule it 3 times a day for the next week. shoulder exam indicates that rotator cuff muscles are intact, it is possible that she has right upper extremity weakness related to her stroke versus intubation by pain and difficult to distinguish on exam at this time. no evidence of fracture/dislocation - follow-up in primary care Notes For Next Care Provider monitor effects of low-dose rosuvastatin, LDL goal less than 70 especially with recurrent stroke continue to evaluate for hypertension, consider whether she needs second agent perhaps very low-dose lisinopril follow-up results of ambulatory project manager retail Medication Changes From Visit added rosuvastatin 2.5 mg daily continue both aspirin and Plavix Admission HPI Per Admitting Provider The patient is a 85-year-old female with a past medical history including cerebellar stroke, internuclear abdominal plegia, hypertension, and vitamin D deficiency. She presents to the emergency department with acute onset of slurred speech, and right facial droop that began around 3:00 in the afternoon of 09/04. Family called EMS, who noted the patient's symptoms. They report that en route the patient had a run of atrial flutter. Her symptoms have gradually improved, and patient family reports in the ED that her speech is still somewhat slurred, however, she otherwise appears to be normalizing. Patient was evaluated as a stroke alert, and recommendation by telestroke was no TNK, and no heparin. While in the emergency department, patient was noted to have several episodes of bradycardia, with heart rate into the upper 30s and lower 40s. Discharge Exam General Appearance: appears well sitting up in bed eating Vital signs: Reviewed past 24h vital signs in EMR, unremarkable. HEENT: Within normal limits. Respiratory: Respirations nonlabored, no rhonchi rales or wheezes. Cardiovascular: Regular rate and rhythm, no murmur. Gastrointestinal: Abdomen soft NT/ND, normal active bowel tones. Extremities: warm and well perfused, no LE edema. Skin: Warm and dry, no rash. Neurological: Speaking clearly, understanding well, no word-finding difficulty, no paraphasic errors, fluent speech with normal content. Slight right facial droop almost imperceptible at this time, no overt facial weakness. Right upper extremity strength 3+ to 4- out of 5, range of motion of the shoulder improved and strength improved - no particular weakness with extending arm overhead, abduction, internal or external rotation, or forward extension. No deformity or tenderness. chronic right hand tremor unchanged. Left upper extremity strength 5 out of 5. Right lower extremity strength virtually normal, subtle hip flexor weakness compared to left. Psychiatric: Normal. Discharge Plan Discharge Items Patient Disposition: Home - Self-Care Reason For Visit: STROKE-LIKE SYMPTOMS, ATRIAL FLUTTER, TACHYBRADY S Discharge Diagnosis: Acute ischemic stroke Condition on Discharge: Good Activity: Resume your previous activity Non-emergency contact: Primary Care Provider Call non-emergency contact if: you have any medication questions and your pain is worsening Follow-up/Referrals: Stacy Plascencia PA-C [Primary Care Provider] - 09/12/25 11:30 am (09/12/25 at 11:30 with Jose Miguel Rolan) Diet: Heart Healthy Wilda Attending Provider Instructions: You were treated for acute ischemic stroke - it is fortunately a small stroke in the left side of your brain - it explains the right facial droop and speech disturbance that you had We were concerned you might have an arrhythmia called atrial flutter, however, it turned out to be that your right hand tremor was affecting the EKG tracing We arranged an outpatient heart monitor to make sure Continue taking aspirin and plavix for stroke prevention To reduce the risk of stroke I'd like to try to add a low dose of rosuvastatin to lower your cholesterol slightly. If you develop muscle pain or weakness, stop taking it and call your doctor Your heart echo was very good - strong squeeze and no heart valve disease For your sore shoulder take acetaminophen 1000 mg (2 tabs) three times a day for a week. After that take it as needed. This will reduce the pain so you move your right arm around more. If you keep your shoulder too still there is risk of frozen shoulder, which can be painful. Follow up in primary care within 1-2 weeks It was a pleasure taking care of you in the hospital, Ariana Astudillo [employer]imming [employer] Service Technician Provider Instructions: Risk Factors for Stroke: You can reduce your chances of stroke by working with your medical provider to adopt a healthy lifestyle. Some specific ways to lower your chance of stroke are: * If you are a smoker, now is the time to stop smoking cigarettes * If you are diabetic, improve the control of your blood sugars * Avoid excessive amounts of alcohol * Control high blood pressure * Lose weight if you are overweight * Be sure to lead an active lifestyle * Eat a healthy diet low in salt, cholesterol and fat You should know about other risk factors for stroke that you are unable to control. These include: * Age 55 years or older * Male gender * Certain racial groups: , or / * Family History of Stroke, Mini stroke or Heart Attack * Sickle Cell Disease Follow Up: It is important for you to keep your follow up appointments with your medical provider. Who to Call and When: Medical Emergencies: Call 911 immediately if you experience any of the following warning signs and symptoms of Stroke: * Sudden numbness or weakness of the face, arm or leg, especially on one side of the body * Sudden confusion, trouble speaking or understanding * Sudden trouble seeing in one or both eyes * Sudden trouble walking, dizziness, loss of balance or coordination * Sudden severe headache with no cause Do not delay calling 911 if you experience any warning signs or symptoms of a stroke. Delay in seeking medical attention may affect what treatments can be given to you. . Pending Studies at Discharge: No Stand-Alone Forms: My [facility] [email or web address], Smoking Cessation, Medications to Prevent Stroke Medications and DC Order Prescriptions: New rosuvastatin 5 mg tablet 2.5 mg PO DAILY Qty: 14 0RF Continued propranolol 60 mg capsule,extended release 24 hr 60 mg PO DAILY aspirin 81 mg Tablet,Delayed Release (Dr/Ec) 81 mg PO QAM hydrochlorothiazide 25 mg tablet 25 mg PO DAILY clopidogrel 75 mg tablet 75 mg PO DAILY potassium 99 mg Tablet 99 mg PO DAILY cholecalciferol (vitamin D3) [Vitamin D3] 25 mcg (1,000 unit) Tablet 25 mcg PO DAILY calcium carbonate-vit D3-min 1,200 mgcalcium -1,000 unit Tablet,Chewable 1 tab PO DAILY Discharge Orders: Discharge Order (Routine); Ordered 09/06/25 Ordered By: Ariana Arcos/Other Patient Handouts: Stroke: Taking Medicines Admission Data Admit Date/Time: 09/04/25 20:24 Attending Provider: Ariana Banda Admit Provider: Tong Adkins Primary Care Provider: Stacy Plascencia Other Providers: Tong Adkins; Cesar Ortiz Other Interventions: Discharge Summary Assessment (RN) Last Done: 09/06/25 12:50 Hospital Stay Data Consultations 09/04/25 19:58 ED Decision to Admit Stat 09/05/25 03:35 Consult Cardiology Routine Diagnostic Imagining Performed 09/04/25 17:25 CT angio head w con Stat CT angio neck with con Stat CT head/brain wo con Stat 09/04/25 20:16 MRI Brain [MR brain wo con] Stat 09/05/25 17:01 US venous duplex leg [US venous doppler LE BI] Routine Pending Results Patient Have Any Pending Studies at Discharge: No Discharge Instructions Given to Patient (Per Discharging Provider) You were treated for acute ischemic stroke - it is fortunately a small stroke in the left side of your brain - it explains the right facial droop and speech disturbance that you had We were concerned you might have an arrhythmia called atrial flutter, however, it turned out to be that your right hand tremor was affecting the EKG tracing We arranged an outpatient heart monitor to make sure Continue taking aspirin and plavix for stroke prevention To reduce the risk of stroke I'd like to try to add a low dose of rosuvastatin to lower your cholesterol slightly. If you develop muscle pain or weakness, stop taking it and call your doctor Your heart echo was very good - strong squeeze and no heart valve disease For your sore shoulder take acetaminophen 1000 mg (2 tabs) three times a day for a week. After that take it as needed. This will reduce the pain so you move your right arm around more. If you keep your shoulder too still there is risk of frozen shoulder, which can be painful. Follow up in primary care within 1-2 weeks It was a pleasure taking care of you in the hospital, Ariana Banda MD Total Time Total Time Spent Total Time Spent (In Minutes): I personally spent: 40 minutes today on clinical care activities including: reviewing chart notes and vital signs reviewing reviewing telemetry reviewing studies discussion with cto examining and counseling the patient writing prescriptions, discharge instructions documentation Coding Level of Care Code 95231 INP/OBS DISCH >30 MIN Diagnoses Acute ischemic stroke I63.9 Sinus bradycardia R00.1 Patent foramen ovale Q21.12 Essential tremor G25.0
[2025-09-06 12:51] VITALS: BP 150/97
--- NOTE | 2025-09-06 12:58 | Cardiology Progress Note ---
Date of Service September 06, 2025 Assessment & Plan (1) Cerebrovascular accident: Plan: -Acute left frontal lobe injury at time of presentation. -Fortunately, her neurologic symptoms have improved. -Occurred on aspirin and Plavix (PFO identified, August 2024 CVA). -Atrial dysrhythmia not yet definitively identified. -Recommend 30-day event monitor as an outpatient. (2) Atrial dysrhythmia: Plan: -Several sources within the medical record mention atrial fibrillation/flutter. -The EMT monitor strips are not available for review. -Telemetry has been benign thus far. -If atrial fibrillation/flutter identified, would start a DOAC in place of aspirin. -Continue Plavix. - Recommend 30-day event monitor as an outpatient. (3) Patent foramen ovale: Plan: -Identified at the time of his CVA, August 2024. -Has been maintained on aspirin and Plavix since that time. (4) Hypertension: Plan: -Adequate control on current regimen. Admission and Anticipated Discharge Date Admission Date: September 04, 2025 Subjective The patient is resting comfortably in bed without complaints. Physical Exam Physical Exam: In general this is a well-developed well-nourished white female in no acute distress. HEENT exam is negative. Neck reveals normal carotid upstrokes without bruits. Jugular venous pressure is flat at 90. There is no thyromegaly. Cardiovascular exam reveals a regular rhythm with distant heart sounds. No obvious murmurs. No S3. Lungs are clear without rales, rhonchi, or wheezes. Abdomen is soft without bruits. Extremities reveal intact radial artery pulses bilaterally. There is no peripheral edema. Results & Data Vital Signs (Past 12 Hours) Vital Signs Temp Pulse Pulse Resp BP BP Pulse Ox 09/06/25 12:50 36.8 C 54 L 18 139/84 150/97 H 95 09/06/25 12:14 36.8 C 54 L 18 139/84 95 09/06/25 07:54 42 L 09/06/25 07:48 36.5 C 86 16 136/76 96 09/06/25 07:03 36.7 C 123 H 19 150/97 H 93 09/06/25 02:44 36.7 C 76 17 98/65 L 98 O2 Del Method 09/06/25 12:50 09/06/25 12:14 Room Air 09/06/25 07:54 09/06/25 07:48 Room Air 09/06/25 07:03 Room Air 09/06/25 02:44 Room Air Diagnostic Findings alarm security or surveillance monitor notes sinus rhythm with occasional PACs. No atrial fibrillation or flutter. PG Care Time/CCT Total # of Minutes Spent Total Time Spent with Patient: Total time spent is greater than 50% in coordination of care (as documented) at patient's floor/unit and/or counseling patient: Coding Level of Care Code 31072 SUB INP/OBS CARE 3/50MIN Diagnoses Cerebrovascular accident I63.9 Atrial dysrhythmia I49.8 Patent foramen ovale Q21.12 Primary hypertension I10 Hypertension type: primary hypertension (4) Hypertension Hypertension type: primary hypertension Qualified Code(s): I10 - Essential (primary) hypertension
--- NOTE | 2025-09-06 13:14 | Pharmacy Report ---
- Date of Service September 06, 2025 - Pharmacy CVA/TIA Medication Review Medications to Prevent Stroke handout has been added to the patients discharge packet. Antiplatelet(s) * aspirin 81mg + clopidogrel Cholesterol * Rosuvastatin 5mg po daily..High intensity statin deferred due to age >75 and LDL 72 DVT Prophylaxis * SCD knee Therapeutic Anticoagulation * No history of Afib/Aflutter noted Type 2 Diabetes * Patient does not have T2DM. No antidiabetic medications and HbA1c: 5.7%
--- NOTE | 2025-09-08 12:09 | Pharmacy Report ---
Pharmacist Stroke Counseling - Date of Service September 08, 2025 - Scope: Pharmacy has been consulted to provide medication discharge counseling for this patient admitted with ischemic stroke as per the Pharmacist Discharge Counseling for Stroke Patients Protocol. - Medications on Discharge: Home Medications Medication Instructions Recorded Confirmed aspirin 81 mg tablet,delayed 81 mg PO QAM 08/08/24 09/04/25 release hydrochlorothiazide 25 mg tablet 25 mg PO DAILY 08/08/24 09/04/25 propranolol 60 mg capsule,24 60 mg PO DAILY 08/08/24 09/04/25 hr,extended release calcium carb 1,200 mg-vit D3 1,000 1 tab PO DAILY 09/04/25 09/04/25 unit-minerals chewable tablet cholecalciferol (vitamin D3) 25 25 mcg PO DAILY 09/04/25 09/04/25 mcg (1,000 unit) tablet (Vitamin D3) clopidogrel 75 mg tablet 75 mg PO DAILY 09/04/25 09/04/25 potassium 99 mg tablet 99 mg PO DAILY 09/04/25 09/04/25 New Rx's Medication Instructions Recorded rosuvastatin 5 mg tablet 2.5 mg (1/2 x 5 mg) PO DAILY 09/06/25 stroke prevention #14 tabs - Action: The above medications, specifically ones for stroke treatment/prophylaxis, have been reviewed in detail with the patient and/or patient medical sales representative(s) prior to discharge. This includes indication, common adverse reactions, drug interactions, and medication administration. Medication counseling has been employed using the teach-back method to ensure understanding. - Outcome: The patient and/or patient medical sales representative(s) have demonstrated understanding of the medications. Additional comments: Spoke with patient about new addition of rosuvastatin and also stressed importance of continuing aspirin and clopidogrel which she was previously prescribed. Patient states she has been taking medications as prescribed. No further problems or concerns expressed. Thank you for allowing pharmacy to be involved in the care of this patient. Please call [phone] with any additional questions
== END 2025-09-06 14:44 | disposition home or self-care (01) | DRG 65 ==
LOC: SUATTDRO → ED 17:22 → SUATTDRO 20:34 → 4W 20:34